=== PATIENT | female | born 2000 | race African-American/Black ===

== ENCOUNTER 2023-03-19 17:06 | Emergency (ER) | payer BC ==
--- OUTSIDE RECORDS SUMMARY | 2023-03-19 17:11 | XMS REPORT | Continuity of Care Document ---
:2000 Author Organization [facility] t Address [address] [facility], [place] [address] [place] [address] Care Team Providers Name Role Phone Kevan Duke MD Primary Care Physician Zarina Rangel Attending Clinician Unavailable Ferny Lynch Attending Clinician Unavailable Chuy Mckeon Attending Clinician Unavailable Kev Underwood Attending Clinician Unavailable Mamie Villalobos Attending Clinician Unavailable MJ MENDIOLA Attending Clinician Unavailable Chuy Mckeon Admitting Clinician Unavailable Physician, No Primary or Family Admitting Clinician Unavaila ble Payers Payer Name Policy Type Policy Number Effective Date Expiration Date S ource Problems Condition Condition Condition Status Onset Resolution Last Treating Co mments Source Name Details Category Date Date Treatment Clinician Date Encounter Encounter Diagnosis Active H ope for for Clinic Nexplanon Nexplanon removal removal Contracept Contracept Diagnosis Active Hope ion ion Clinic management management Allergies, Adverse Reactions, Alerts Allergy Allergy Status Severity Reaction(s) Onset Inactive Treating Comm ents Source Name Type Date Date Clinician Penicill DA Active U Unknown [facility] ins 01-12 00:00: 00 Penicill DA Active U HIVES [facility] [place] Pen[facility] DA Active U HIVES [facility] 8-22 [facility] [place] Penicill DA Active U ANAPHYLAXIS [facility] ins 1-25 [facility] [place] Penicill Propensi Active Rash 2020-10 Method i ins ty to 0-05 st adverse 00:00: Hospita reaction 00 l s to drug penicill Adverse Active hives [facility] in [facility] Social History Social Habit Start Date Stop Date Quantity Comments Source Gender identity [facility] Sexual orientation Method t Hospital History of Social 2021-07-29 2021-07-29 [facility] function 00:00:00 00:00:00 Sex Assigned At 2000 2000 [facility] 00:00:00 00:00:00 Smoking Status Start Date Stop Date Source Tobacco smoking consumption unknown [facility] Medications Ordered Filled Start Stop Current Ordering Indication Dosage Frequency Signature Comments Components Source Medication Medication Date Date Medication? Clinician (SIG) Name Name Microgestin Microgestin Yes Simrta 1 tablet [facility] Procedures Procedure Date / Time Performed Performing Clinician [facility] samuel [id number] 2022-06-17 00:00:00 MIDJA. [facility] [id number] 2022-06-17 00:00:00 . [facility] [id number] 2022-06-17 00:00:00 MID. [facility] Plan of Care Planned Activity Planned Date Details Comments Source Future Scheduled 2023-01-23 Screening for [facility] Test 21:20:57 malignant neoplasm of cervix (procedure) [code = 311402340] Future Scheduled 2023-01-23 COVID-19 VACCINE (3 - [facility] Test 21:20:57 Booster for Moderna series) [code = COVID-19 VACCINE (3 - Booster for Moderna series)] Future Scheduled 2023-01-23 INFLUENZA VACCINE Method [facility] Test 21:20:57 [code = INFLUENZA VACCINE] Future Scheduled 2023-01-23 Screening for [facility] Test 21:20:57 Chlamydia trachomatis (procedure) [code = 611164876] Future Scheduled 2023-01-23 Hepatitis C screening [facility] Test 21:20:57 (procedure) [code = 382033249] Future Scheduled 2022-10-17 [facility] Test 23:59:45 Chlamydia trachomatis (procedure) [code = 236379116] Future Scheduled 2022-10-17 Hepatitis C screening [facility] Test 23:59:45 (procedure) [code = 625447839] Future Scheduled 2022-10-17 [facility]ening for [facility] Test 23:59:45 malignant neoplasm of cervix (procedure) [code = 585491989] Future Scheduled 2022-10-17 COVID-19 VACCINE (3 - [facility] Test 23:59:45 Booster for Moderna series) [code = COVID-19 VACCINE (3 - Booster for Moderna series)] Future Scheduled 2022-10-17 INFLUENZA VACCINE [facility] Test 23:59:45 [code = INFLUENZA VACCINE] Encounters Start End Encounter Admission Attending Care Care Encounter Source Date/Time Date/Time Type Type Clinicians Facility Department ID 2021-11-19 Outpatient [facility] [id number] [place] 11:02:56 ye, [id number] [facility] 2023-01-12 2023-01-12 Emergency Emergency [facility], [facility] [id number] [facility] 12:42:00 14:16:00 Ferny 34 2022-06-17 2022-06-19 Inpatient EL [place], [facility] OBPP [id number] [facility] 01:39:00 14:00:00 Chuy [facility] 2022-06-15 2022-06-15 Emergency EM [place] [facility] RADHA [id number] [facility] 21:43:00 22:47:00 Chuy 92 [facility] 2022-01-27 2022-01-27 Emergency EM YOLANDE Underwood [id number] [facility] 01:38:00 05:45:00 Kev 50 [facility] 2021-11-18 2021-11-18 Emergency EM YOLANDE Villalobos [id number] [facility] 12:55:00 15:18:00 Mamie 43 [facility] 2021-07-29 2021-07-29 Emergency MARLENA, [facility] [id number] [place] 00:00:00 00:00:00 MJ Milner[address] [facility] 2019-11-17 2019-11-17 Outpatient [facility] [id number] [place] 08:30:00 08:30:00 [facility] 2018-08-16 2018-08-16 Outpatient [facility] [id number] [place] 14:45:00 14:45:00 [facility] Results Test Description Test Time Test Comments Results Result Comments Source CBC W/AUTO DIFF 2022-06-19 10:56:00 Test Item Value Reference Range Interpretation Comme nts WHITE BLOOD CELL (test code = WBC) 19.3 K/mm3 6.5-12.3 H RED BLOOD CELL (test code = RBC) 4.06 M/mm3 3.51-4.69 N HEMOGLOBIN (test code = HGB) 9.3 g/dL 10.1-13.8 L HEMATOCRIT (test code = HCT) 29.8 % 32.5-41.8 L MEAN CELL VOLUME (test code = MCV) 73.4 fL 84.6-96.6 L MEAN CELL HGB (test code = MCH) 22.9 pg 27.3-33.9 L MEAN CELL HGB CONCETRATION (test code = MCHC) 31.2 gm/dL 32.0-34. 2 L RED CELL DISTRIBUTION WIDTH (test code = RDW) 15.1 % 12.2-16. 3 N PLATELET COUNT (test code = PLT) 309 K/mm3 134-363 N MEAN PLATELET VOLUME (test code = MPV) 10.4 fL 9.2-12.7 N NEUTROPHIL % (test code = NT%) 76.3 % 57.9-77.3 N LYMPHOCYTE % (test code = LY%) 13.7 % 14.5-29.7 L MONOCYTE % (test code = MO%) 6.3 % 3.6-10.2 N EOSINOPHIL % (test code = EO%) 2.0 % 0.0-3.0 N BASOPHIL % (test code = BA%) 0.5 % 0.1-0.9 N NEUTROPHIL # (test code = NT#) 14.7 K/mm3 LYMPHOCYTE # (test code = LY#) 2.6 K/mm3 MONOCYTE # (test code = MO#) 1.2 K/mm3 EOSINOPHIL # (test code = EO#) 0.39 K/mm3 BASOPHIL # (test code = BA#) 0.1 K/mm3 RBC MORPHOLOGY REQUIRED (test code = RBCM) NORMAL NORMAL PLATELET MORPHOLOGY REQUIRED (test code = PLTMR) NORMAL DEE L [id number] 09:30:00 Test Item Value Reference Range Interpretation Comments GLUBED (test code = GLUBED) 81 mg/dL 65-110 N RUBELLA [id number] 08:50:00 Test Item Value Reference Range Interpretation Comments RUBELLA SCREEN 91.7 IUnit/ml Results >10. 0IUnits/ml (test code = are considered positive RUBSC) inaccordance wi th the CLSI guidelines and based on the WH [employer] S tandard for Anti-Rubell a serum as anindicator of immune status and a br eakpoint to detect mostseropositiv e persons. HGB [id number] 08:10:00 Test Item Value Reference Range Interpretation Comments HEMOGLOBIN (test code = HGB) 9.8 g/dL 10.1-13.8 L HEMATOCRIT (test code = HCT) 31.0 % 32.5-41.8 L LACTIC [id number] 21:11:00 Test Item Value Reference Range Interpretation Comments LACTIC ACID (test code = LACT) 1.3 MMOL/L 0.5-2.2 N LACTIC [id number] 19:21:00 Test Item Value Reference Range Interpretation Comments LACTIC ACID (test 3.0 MMOL/L 0.5-2.2 H RESULTS CA LLED TO code = LACT) TEDDY MURCIA RN.READ BACK & CONFIRME D? Y.BY [id number] 1920.Results ve rified by repeat tory sis CAPILLARY BLOOD [id number] 18:02:00 Test Item Value Reference Range Interpretation Comments CAPILLARY BLOOD GAS PH (test code 7.231 7.35-7.45 L = PHC) CAPILLARY BLOOD GAS PCO2 (test 55.4 mmHg code = PCO2C) CAPILLARY BLOOD GAS PO2 (test code 14.1 mmHg = PO2C) CBG HCO3 (test code = HCO3C) 22.7 meq/L CBG BASE EXCESS (test code = BEC) -5.5 CAPILLARY BLOOD GAS TYPE (test CBLV code = TYPEC) CAPILLARY BLOOD GAS FIO2 (test 21.0 % code = FIO2C) CAPILLARY BLOOD [id number] 18:01:00 Test Item Value Reference Range Interpretation Comments CAPILLARY BLOOD GAS PH (test code 7.155 7.35-7.45 LL = PHC) CAPILLARY BLOOD GAS PCO2 (test 71.6 mmHg code = PCO2C) CAPILLARY BLOOD GAS PO2 (test code 10.8 mmHg = PO2C) CBG HCO3 (test code = HCO3C) 24.7 meq/L CBG BASE EXCESS (test code = BEC) -5.7 CAPILLARY BLOOD GAS TYPE (test CBLA code = TYPEC) CAPILLARY BLOOD GAS FIO2 (test 21.0 % code = FIO2C) LACTIC [id number] 17:30:00 Test Item Value Reference Range Interpretation Comments LACTIC ACID (test 2.2 MMOL/L 0.5-2.2 N RESULTS CA LLED TO code = LACT) REGLA LINDSEY RN.R EAD BACK & CONFIRME D? Y.BY [id number] 1728.Results ve rified by repeat tory sis COMPREHENSIVE METABOLIC [id number] 17:17:00 Test Item Value Reference Range Interpretation Comments SODIUM (test code = NA) 137 mEq/L 135-145 N POTASSIUM (test code = K) 4.0 mEq/L 3.5-5.0 N CHLORIDE (test code = CL) 103 mEq/L 100-115 N CARBON DIOXIDE (test code = CO2) 25 mEq/L 22-31 N ANION GAP (test code = GAP) 12.60 10-20 N GLUCOSE (test code = GLU) 86 mg/dL 65-110 N BLOOD UREA NITROGEN (test code = 5 mg/dL 7-18 L BUN) GLOMERULAR FILTRATION RATE (test 100 ml/min >60 N code = GFR) CREATININE (test code = CREAT) 0.8 mg/dL 0.5-1.0 N TOTAL PROTEIN (test code = PROT) 7.2 gm/dL 6.3-8.2 N ALBUMIN (test code = ALB) 3.0 gm/dL 3.4-4.8 L CALCIUM (test code = CA) 8.8 mg/dL 8.4-10.2 N BILIRUBIN TOTAL (test code = 0.3 mg/dL 0.2-1.0 N BILT) SGOT/AST (test code = AST) 24 units/L 15-37 N SGPT/ALT (test code = ALT) 22 units/L 12-78 N ALKALINE PHOSPHATASE TOTAL (test 137 units/L 46-116 H code = ALKP) PROTHROMBIN [id number] 16:38:00 Test Item Value Reference Range Interpretation Comments PROTHROMBIN TIME PATIENT (test code 11.1 secs 10.1-12.3 N = PTP) IS PATIENT ON ANTICOAGULANTS ? NINTERNATIONAL NORMAL [id number] 16:38:00 Test Item Value Reference Range Interpretation Comments INTERNATIONAL NORMAL 0.97 The INR is to be used RATIO (test code = INR) only for monitoring oral anticoagulantth erapy. INDICATION INR VALUE 1. Prophylaxis inc luding high risk surge ry 2.0 - 2.52. Deep veno us thrombosis. Pul monary embolism. Atria l fibrillation or bioprosthetic h eart valves 2.0 - 3. 03. Mechanical hear t valves or recurrent sy stemic embolism. 3.0 - 3.5 IS PATIENT ON ANTICOAGULANTS ? NTHROMBOPLASTIN TIME [id number] 16:38:00 Test Item Value Reference Range Interpretation Comments THROMBOPLASTIN TIME PARTIAL (test 29.0 secs 22-38 N code = PTT) IS PATIENT ON ANTICOAGULANTS ? NCBC W/AUTO [id number] 16:12:00 Test Item Value Reference Range Interpretation Comments WHITE BLOOD CELL (test code = WBC) 15.8 K/mm3 6.5-12.3 H RED BLOOD CELL (test code = RBC) 4.76 M/mm3 3.51-4.69 H HEMOGLOBIN (test code = HGB) 11.0 g/dL 10.1-13.8 N HEMATOCRIT (test code = HCT) 35.3 % 32.5-41.8 N MEAN CELL VOLUME (test code = MCV) 74.2 fL 84.6-96.6 L MEAN CELL HGB (test code = MCH) 23.1 pg 27.3-33.9 L MEAN CELL HGB CONCETRATION (test 31.2 gm/dL 32.0-34.2 L code = MCHC) RED CELL DISTRIBUTION WIDTH (test 15.8 % 12.2-16.3 N code = RDW) PLATELET COUNT (test code = PLT) 338 K/mm3 134-363 N MEAN PLATELET VOLUME (test code = 10.1 fL 9.2-12.7 N MPV) NEUTROPHIL % (test code = NT%) 83.5 % 57.9-77.3 H LYMPHOCYTE % (test code = LY%) 8.5 % 14.5-29.7 L MONOCYTE % (test code = MO%) 6.8 % 3.6-10.2 N EOSINOPHIL % (test code = EO%) 0.1 % 0.0-3.0 N BASOPHIL % (test code = BA%) 0.3 % 0.1-0.9 N NEUTROPHIL # (test code = NT#) 13.2 K/mm3 LYMPHOCYTE # (test code = LY#) 1.3 K/mm3 MONOCYTE # (test code = MO#) 1.1 K/mm3 EOSINOPHIL # (test code = EO#) 0.01 K/mm3 BASOPHIL # (test code = BA#) 0.0 K/mm3 RBC MORPHOLOGY REQUIRED (test code NORMAL NORMAL = RBCM) PLATELET MORPHOLOGY REQUIRED (test NORMAL NORMAL code = PLTMR) [id number] 12:56:00 Test Item Value Reference Range Interpretation Comments GLUBED (test code = GLUBED) 129 mg/dL 65-110 H AG HEPATITIS B [id number] 05:35:00 Test Item Value Reference Range Interpretation Comments AG HEPATITIS B SURFACE (test code NONREACTIVE NONREACTIVE = HBSAG) AB HEPATITIS C [id number] 05:35:00 Test Item Value Reference Range Interpretation Comments AB HEPATITIS C (test code = NONREACTIVE NONREACTIVE HCVAB) SIGNAL TO CUTOFF (test code = 0.17 <0.80 N CUTOFF) AB [id number] 05:35:00 Test Item Value Reference Range Interpretation Comments AB TREPONEMA (test code = TREPAB) NONREACTIVE NONREACTIVE AB HIV 1 05:35:00 Test Item Value Reference Range Interpretation Comments AB HIV 1 2 (test NONREACTIVE NONREACTIVE [facility] = URH74FT) 4th Gen HIV Ag/Ab Combo Screen [id number] 05:27:00 Test Item Value Reference Range Interpretation Comments GLUCOSE (test code = GLU) 109 mg/dL 65-110 N CBC W/AUTO [id number] 04:00:00 Test Item Value Reference Range Interpretation Comments WHITE BLOOD CELL (test code = WBC) 12.7 K/mm3 6.5-12.3 H RED BLOOD CELL (test code = RBC) 4.73 M/mm3 3.51-4.69 H HEMOGLOBIN (test code = HGB) 10.8 g/dL 10.1-13.8 N HEMATOCRIT (test code = HCT) 34.5 % 32.5-41.8 N MEAN CELL VOLUME (test code = MCV) 72.9 fL 84.6-96.6 L MEAN CELL HGB (test code = MCH) 22.8 pg 27.3-33.9 L MEAN CELL HGB CONCETRATION (test 31.3 gm/dL 32.0-34.2 L code = MCHC) RED CELL DISTRIBUTION WIDTH (test 15.8 % 12.2-16.3 N code = RDW) PLATELET COUNT (test code = PLT) 356 K/mm3 134-363 N MEAN PLATELET VOLUME (test code = 9.7 fL 9.2-12.7 N MPV) NEUTROPHIL % (test code = NT%) 73.9 % 57.9-77.3 N LYMPHOCYTE % (test code = LY%) 14.5 % 14.5-29.7 N MONOCYTE % (test code = MO%) 9.2 % 3.6-10.2 N EOSINOPHIL % (test code = EO%) 1.0 % 0.0-3.0 N BASOPHIL % (test code = BA%) 0.3 % 0.1-0.9 N NEUTROPHIL # (test code = NT#) 9.4 K/mm3 LYMPHOCYTE # (test code = LY#) 1.8 K/mm3 MONOCYTE # (test code = MO#) 1.2 K/mm3 EOSINOPHIL # (test code = EO#) 0.13 K/mm3 BASOPHIL # (test code = BA#) 0.0 K/mm3 RBC MORPHOLOGY REQUIRED (test code NORMAL NORMAL = RBCM) PLATELET MORPHOLOGY REQUIRED (test NORMAL NORMAL code = PLTMR) COVID 19 Asymptomatic IH [id number] 03:04:00 Test Item Value Reference Range Interpretation Comments COVID 19 NEGATIVE NEGATIVE This test has b een Asymptomatic IH AG authorize d only for the (test code = detection ofpro teins from COVNONPUIAG) SARS-CoV-2, not for any other viruses orpathogens. Ne gative results should be treated as presumptive andconfirmed wi th a molecular assay , if necessary for patientmanageme nt. Negative result s do not rule out COVID- 19 andshould not b e used as the sole basis for treatment orpat ient management deci sions, including infec tion controldecision s. Negative result s should be considered i n thecontext of a patient's recent exposure s, history and thepresence of clinical signs and symptoms consis tent withCOVID-19. T his test has not been FD A cleared or approved; th e test hasbeen authori jacob by FDA under an Emerge ncy Use Authorization(E UA) for use by laborato mehrdad certified under the CLIA thatmeet the re quirements to perform mode rate, high or waivedcomple xity tests. This toma t is authorized for use at thePoint of Car e (POC), i.e., in patien t care settingsoperati ng under a CLIA Certificat e of Waiver, Certifi rj ofCompliance, o r Certificate of Accreditation. This test is only authori zesalma for the duration of thedeclaration that circumstances e xist justifying theauthorizatio n of emergency use o f in vitro diagnostic test sfor detection and/o r diagnosis of CO VID-19 under Cjsuesx82 4(b)(1) of the Act, 21 U.S .C. 360bbb-3(b)(1), unless theauthorizatio n is terminated or r evoked sooner. URINALYSIS [id number] 03:12:00 Test Item Value Reference Range Interpretation Comments UA COLOR (test code = YELLOW YELLOW COLU) UA APPEARANCE (test code CLEAR CLEAR = APPU) UA GLUCOSE DIPSTICK (test NORMAL MG/DL NORMAL code = DGLUU) UA BILIRUBIN DIPSTICK NEGATIVE MG/DL NEGATIVE (test code = BILU) UA KETONE DIPSTICK (test NEGATIVE MG/DL NEGATIVE code = KETU) UA SPECIFIC GRAVITY (test 1.025 1.003-1.030 N code = SGU) UA BLOOD DIPSTICK (test 25 Mir/mm3 NEGATIVE A code = STU) UA PH DIPSTICK (test code 6.0 5.0-9.0 N = VIANNEY) UA PROTEIN DIPSTICK (test 30 MG/DL NEGATIVE A code = PROU) UA UROBILINIOGEN DIPSTICK NORMAL MG/DL NORMAL (test code = URO) UA NITRITE DIPSTICK (test NEGATIVE NEGATIVE code = MASOOD) UA LEUKOCYTE ESTERASE NEGATIVE /mm3 NEGATIVE DIPSTICK (test code = LEUU) UA CULTURE NEEDED? (test NO, WBC<10 Criteria Culture Chk code = UACULT) SOURCE OF URINE: CLEAN CATCHUA [id number] 03:12:00 Test Item Value Reference Range Interpretation Comments UA RBC (test code = 0-3 RBC/HPF 0-3 RBCU) UA WBC (test code = 0-3 WBC/HPF 0-5 XWBCU) UA EPITHELIAL CELLS FEW EPI/HPF FEW (test code = EPIU) UA BACTERIA (test RARE NONE code = XBACU) UA HYALINE CAST (test 0-5 See_Comment A [Auto mated message] code = HYALU) The system [employer] generated this result transmitted ref erence range: 0-2/HPF. The reference range was not used to int erpret this result as normal/abnormal . SOURCE OF URINE: CLEAN CATCHDRUGS OF ABUSE SCREEN [id number] 03:12:00 Test Item Value Reference Range Interpretation Comments UR COCAINE (test code = NEGATIVE NEGATIVE Cut off Value: 300 COCAU) ng/mL UR CANNABINOIDS (THC) POSITIVE NEGATIVE A Cut of f Value: 50 (test code = CANU) ng/mL UR AMPHETAMINE (test code NEGATIVE NEGATIVE Cu t off Value: 1000 = AMPHU) ng/mL UR BARBITURATE QUAL (test NEGATIVE NEGATIVE Cu t off Value: 200 code = BARBQLU) ng/mL UR BENZODIAZEPINE (test NEGATIVE NEGATIVE Cut off Value: 200 code = BENZU) ng/mL UR OPIATES QUAL (test code NEGATIVE NEGATIVE C ut off Value: 300 = OPIAQLU) ng/mL UR PHENCYCLIDINE (PCP) NEGATIVE NEGATIVE Cut o ff Value: 25 (test code = PHENCU) ng/mL SOURCE OF URINE: CLEAN CATCHBASIC METABOLIC [id number] 02:44:00 Test Item Value Reference Range Interpretation Comments SODIUM (test code = 138 MMOL/L 137-145 N NA) POTASSIUM (test code = 3.5 MMOL/L 3.5-5.1 N K) CHLORIDE (test code = 102 MMOL/L 98-107 N CL) CARBON DIOXIDE (test 25 MMOL/L 22-30 N code = CO2) GLUCOSE (test code = 142 MG/DL 74-106 H GLU) BLOOD UREA NITROGEN 17 MG/DL 7-17 N (test code = BUN) GLOMERULAR FILTRATION > 60 Report ing units: RATE (test code = GFR) ml/mi n/1.73 m2 (Modified MDRD Formula)Referen ce Range: > or = 6 0 ml/min/1.73 m2 CREATININE (test code 1.20 MG/DL 0.52-1.04 H = CREAT) CALCIUM (test code = 8.9 MG/DL 8.4-10.2 N CA) HEPATIC FUNCTION [id number] 02:44:00 Test Item Value Reference Range Interpretation Comments TOTAL PROTEIN 8.0 G/DL 6.3-8.2 N [facility] Clinical Diagnostic (test code = has made us shari re of PROT) newinformation regarding the potential i nterference ofEltrombopag ( a bone marrow stimulan t used to treatthrombocyt onmenia and aplastic anemia ) with specific assays on the DSI MET-TECHs 5600 of which Total Protein is one of thoseassays per formed in our lab.Interfe rence testing perform ed at Ortho determined that Eltrombopag does interfere with Vitros Total Protein asfollowsEltrom bopag Interference fo r Vitros Product Total Protein:======= Eltrombopag Max Observed Av g. BiasConcentrati on Concentration Concentration== ==== 2.5 mg/dl 6.0 g/dl +0.41 +0.34 3.5 mg/dl 6.0 g /dl +0.50 +0.45 5 mg/dl 6.0 g/dl +0.73 +0.65 2.5 mg/dl 8.0 g/dl +0.44 +0.4 1 3.5 mg/dl 8.0 g/dl +0.55 +0.52 5 mg/dl 8.0 g/dl +0.86 +0.77 ALBUMIN (test 4.5 G/DL 3.5-5.0 N code = ALB) BILIRUBIN TOTAL 0.4 MG/DL 0.2-1.3 N Eltrombopag Interference (test code = for Vitros Prod uct TBil, BILT) BuBc: Assa y Eltrombopag Sangeetha lyte/ Max Observed Avg. B ias Concentration C oncentration Concentration== ====TBil 7mg/dl TBil/ 1. 2mg/dl +0.23mg.dl +0.2 0mg/dlBuBc 3.5mg/dl Bu/0.8 mg/dl +0.25mg/dl +0.2 4mg/dlBuBc 7 mg/dl Bu/14.2mg /dl +0.38mg/dl +0.2 5mg/dlBuBc 5mg/dl Bc/0mg/d l +0.25mg/dl +0.15mg/dlBuBc 3.5mg/dl Bc/2.8mg/dl +0. 25mg/dl +0.23mg/dl BILIRUBIN DIRECT 0.0 MG/DL 0.0-0.3 N Eltrombopag Interference (test code = for Vitros Prod uct TBil, BILD) BuBc: Assa y Eltrombopag Sangeetha lyte/ Max Observed Avg. B ias Concentration C oncentration Concentration== ====TBil 7mg/dl TBil/ 1. 2mg/dl +0.23mg.dl +0.2 0mg/dlBuBc 3.5mg/dl Bu/0.8 mg/dl +0.25mg/dl +0.2 4mg/dlBuBc 7 mg/dl Bu/14.2mg /dl +0.38mg/dl +0.2 5mg/dlBuBc 5mg/dl Bc/0mg/d l +0.25mg/dl +0.15mg/dlBuBc 3.5mg/dl Bc/2.8mg/dl +0. 25mg/dl +0.23mg/dl SGOT/AST (test 39 UNITS/L 14-36 H code = AST) SGPT/ALT (test 32 UNITS/L 0-34 N code = ALT) ALKALINE 57 UNITS/L 38-126 N PHOSPHATASE (test code = ALKP) [id number] 02:44:00 Test Item Value Reference Range Interpretation Comments ACETAMINOPHEN (test code = < 10.0 MCG/ML 10-30 L ACET) [id number] 02:44:00 Test Item Value Reference Range Interpretation Comments SALICYLATE (test code = SHARITA) < 1.0 MG/DL <2.0 [id number] 02:44:00 Test Item Value Reference Range Interpretation Comments ALCOHOL (test code = ALC) < 10.0 MG/DL <10 HCG SERUM [id number] 02:42:00 Test Item Value Reference Range Interpretation Comments HCG SERUM QUAL (test code = HCGQL) NEGATIVE NEGATIVE CBC W/AUTO [id number] 02:15:00 Test Item Value Reference Range Interpretation Comments WHITE BLOOD CELL (test code = 9.3 K/MM3 3.8-9.8 N WBC) RED BLOOD CELL (test code = 5.03 M/MM3 3.58-4.97 H RBC) HEMOGLOBIN (test code = HGB) 11.4 G/DL 11.2-14.9 N HEMATOCRIT (test code = HCT) 36.7 % 33.2-43.5 N MEAN CELL VOLUME (test code = 73 fL 80.7-99.1 L MCV) MEAN CELL HGB (test code = MCH) 22.7 pg 27.0-34.1 L MEAN CELL HGB CONCETRATION 31.1 % 32.2-35.7 L (test code = MCHC) RED CELL DISTRIBUTION WIDTH 15.6 % 12.1-15.2 H (test code = RDW) PLATELET COUNT (test code = 346 K/MM3 129-368 N PLT) MEAN PLATELET VOLUME (test code 9.7 fl 7.4-10.4 N = MPV) NEUTROPHIL % (test code = NT%) 51.8 % 43-75 N IMMATURE GRANULOCYTE % (test 0.2 % 0.0-2.0 N code = IG%) LYMPHOCYTE % (test code = LY%) 39.2 % 14-44 N MONOCYTE % (test code = MO%) 7.6 % 4-13 N EOSINOPHIL % (test code = EO%) 0.8 % 0-6 N BASOPHIL % (test code = BA%) 0.4 % 0-2 N NUCLEATED RBC % (test code = 0.0 % 0-1.0 N NRBC%) NEUTROPHIL # (test code = NT#) 4.79 K/mm3 2.0-7.6 N IMMATURE GRANULOCYTE # (test 0.02 x10 3/uL 0-0.03 N code = IG#) LYMPHOCYTE # (test code = LY#) 3.63 K/mm3 1.0-3.8 N MONOCYTE # (test code = MO#) 0.70 K/mm3 0.1-0.8 N EOSINOPHIL # (test code = EO#) 0.07 K/mm3 0.0-0.2 N BASOPHIL # (test code = BA#) 0.04 K/mm3 0.0-0.2 N NUCLEATED RBC # (test code = 0.00 K/mm3 0.0-0.1 N NRBC#) - DUP AB/PEL/SC [id number] 14:33:00 [facility] : 2000 Sex: F Patient Name: TAWNY MARTIN Unit No: [id number] EXAMS: CPT CODE: [id number] DUP AB/PEL/SC LTD 27763 ULTRASOUND:- DUP AB/PEL/SC LTD, - US PREG UT TRANSVAGINAL, - US PREG 1ST TRIMTR History: at 7 weeks with lower abdominal pain Comparison: None. B-mode/Stearns scale imaging with color Doppler perfusion imaging and spectral analysis was performed. The uterus measures 8.1 x 5.7 x 6.5 cm. A single gestation is seen within or single rounded gestational sac. Amniotic fluid appears to be normal. The expected date of delivery is July 08, 2022, +/- 4 days making this a 6 week and 6 day gestation. Menstrual age one week more advanced at 7 weeks and 6 days. Heart rate rate at 133 BPM. A subchronic hemorrhage suggested at 1.6 x 2.4 x 0.6 cm adjacent to the left aspect of the gestational sac and may need further follow-up. The right ovary is 2.5 x 1.4 x 2.6 cm with normal arterial Doppler flow pattern. The left ovary at 3.7 x 2.5 x 2.4 cm contains a 2.7 x 1.8 x 2 cm complex likely hemorrhagic cyst, almost isodense echogenic with the ovarian tissue. Impression: 6 week and 6 day single viable gestation. Small to moderate subchorionic hemorrhage seen with follow-up recommended in the next 1-2 weeks. Location: 19 at 1433 Reported and signed by: WON CARRERO MD CC: Mamie Villalobos DO Technologist: Stephanie Goodman RDMS(AB); SN [id number] Transcrpt Date/Tm/Trnsp: 11/18/2021 (1663) [id number] Orig Print D/T: S: 11/18/2021 (4956) [facility] NAME: TAWNY MARTIN [id number] PHYS: [place] [address] : 2000 AGE: 21 SEX: F LOC: Z.ERS PHONE #: [phone] EXAM DATE: 11/18/2021 STATUS: REG ER FAX #: [phone] RADIOLOGY NO: PAGE 1 Signed Report- US PREG UT [id number] 14:33:00 [facility] 2000 Sex: F Patient Name: TAWNY MARTIN Unit No: [id number] EXAMS: CPT CODE: [id number] US PREG UT TRANSVAGINAL 78785 ULTRASOUND: - DUP AB/PEL/SC LTD, - US PREG UT TRANSVAGINAL, - US PREG 1ST TRIMTR History: at 7 weeks with lower abdominal pain Comparison: None. B-mode/Stearns scale imaging with color Doppler perfusion imaging and spectral analysis was performed. The uterus measures 8.1 x 5.7 x 6.5 cm. A single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 the data set between the solid lines has been im ported from nursing documentation. any exceptions have been noted be low under provider comments. __ rom date: 06/17/22 rom time: 0000 __ provider comments on imported nursing data: [] general vs: last documented: result date time b/p mean 83.0 06/17 1455 b/p 115/59 06/17 1455 pulse 103 06/17 1455 temp 98.4 06/17 1233 resp 16 06/17 0121 vital signs date temp pulse resp b/p b/p mean pulse ox fio2 06/17 98.2-98.4 78-106 16 114-136/57-77 82.0-10 1.0 patient weight: weight (lb): 183 weight (oz): 6.79 weight (kg): 83.200 objective cervical/ exam: dilatation (cm): 8 effacement (%): 100 station: 0 presentation: cephalic uterine activity: monitor: toco frequency (description): regular (every 2-5 min utes) duration (seconds): 60 resting tone: relaxed tachysystole: no current oxytocin: indication: augmentation, not yet started, but ordered previously procedures: vaginal exam fhr evaluation baby a: baby a baseline: 160 bpm baby a variability: moderate 6-25 bpm baby a accelerations: 10 x 10 baby a decelerations: variable result findings/data: laboratory tests: 06/17 06/17 06/17 1250 0345 0125 chemistry glucose (65 - 110 mg/dl) 109 poc glucose (65 - 110 mg/dl) 129 h hematology wbc (6.5 - 12.3 k/mm3) 12.7 h rbc (3.51 - 4.69 m/mm3) 4.73 h hgb (10.1 - 13.8 g/dl) 10.8 hct (32.5 - 41.8 %) 34.5 mcv (84.6 - 96.6 fl) 72.9 l mch (27.3 - 33.9 pg) 22.8 l mchc (32.0 - 34.2 gm/dl) 31.3 l rdw (12.2 - 16.3 %) 15.8 plt count (134 - 363 k/mm3) 356 mpv (9.2 - 12.7 fl) 9.7 neut % (auto) (57.9 - 77.3 %) 73.9 lymph % (auto) (14.5 - 29.7 %) 14.5 mono % (auto) (3.6 - 10.2 %) 9.2 eos % (auto) (0.0 - 3.0 %) 1.0 baso % (auto) (0.1 - 0.9 %) 0.3 neut # (auto) (k/mm3) 9.4 lymph # (auto) (k/mm3) 1.8 mono # (auto) (k/mm3) 1.2 eos # (auto) (k/mm3) 0.13 baso # (auto) (k/mm3) 0.0 serology treponema pallidum ab (nonreactive) nonreactive hep bs antigen (nonreactive) nonreactive hepatitis c antibody (nonreactive) nonreactive hep c ab signal/cutoff (<0.80) 0.17 hiv 1 2 antibody (nonreactive) nonreactive sars-cov-2 ag (rapid) (negative) negative microbiology: date/time procedure - status source growth 06/17 1546 blood culture - ord blood 06/17 1546 blood culture gram stain - ord blood 06/17 1546 blood culture - ord blood 06/17 1546 blood culture gram stain - ord blood diagnosis, assessment plan problem list/a p: 1. pregestational diabetes mellitus, modified w gricel class b 2. htn in , chronic free text a p: 22 y/o g1 @ 37 3/7 weeks, hi story of pgdm, also with suspected chtn, srom since 00:00 on 06/17/2022, remianed in [facility] for several hours awaiting l d bed, now with code sepsis called: -culture, iv fluids, labs -iv gent and clinda, pcn allergic -now c/0 -pitocin if able -moving towards vaginal delivery -anfs overall reassuring electronically signed by chuy mckeon md on 06/17/22 at 1711 rpt #:[id number] end of report 2022-06-17 02:08:00-00:00 [facility] ([facility]) ob admission / h p report#:[id number] report status: signed date:06/17/22 time: 0208 patient: tawny martin unit #: [id number] room/bed: supriyao-e : 00 age: 22 sex: f attend: argenis mckeon md adm dt: 06/17/22 author: antonio silva md * all edits or amendments must be made on the [employer]/computer document * ob history chief complaint: leakage of fluid hpi: 22 yo at 37w3d by stated dates presenting w ith leakage of clear fluid at midnight. she is feeling alex e period-like cramping. she reports recently being 4 cm in the office. she received her care with dr. lucy alston. records are not currently available. she reports a growth ultrasound about 2 we eks ago, 6.14 lb. history: : 1 term: 0 : 0 abortus: 0 living children: 0 current : admission ega (weeks) 37 admission ega (days) 3 edc based on: stated dates conditions of : diabetes - gestational (metformin 1,000 mg bid), gbs status (unknown) labs: gbs: pending per patient past history additional medical history: denies. additional surgical history: denies. additional family history denies. alcohol use denies etoh use drug use denies recreational drugs smoking status: smoking status for patients 13 years old or old er: never smoker medications: home medications: pnv/fe fum/fa ( multivitamin) 1 tab po d aily metformin 1,000 mg bid allergies: coded allergies: penicillins (hives 06/15/22) review of systems all systems rev neg: except as marked objective general vs: last documented: result date time b/p mean 94.0 06/17 0121 b/p 133/71 06/17 0121 temp 98.2 06/17 0121 pulse 90 06/17 0121 resp 16 06/17 0121 vital signs date temp pulse resp b/p b/p mean pulse ox fio2 06/17 98.2 90 16 133/71 94.0 patient weight: weight (lb): weight (oz): weight (kg): 83.289081 physical exam heent: normocephalic w/o injury lungs: unlabored breathing neuro: exam: alert, oriented x3, normal speech abdomen: gravid, soft, no abnormal tenderness, n o guarding, no rebound tenderness uterine activity: monitor: toco frequency (description): regular (every 2-5 min utes) duration (seconds): 60 resting tone: relaxed tachysystole: no pelvic exam: pelvis clinically adequate: yes cervical/ exam: dilatation (cm): 4 effacement (%): 70 est wt (gms): 3700 suspected macrosomia: no suspected > 5000 grams: no station: - 2 presentation: cephalic membranes: membranes: prom rom date: 06/17/22 rom time: 0000 amniotic fluid: clear lower extremities: edema: none baby a: baby a baseline: 135 bpm baby a variability: moderate 6-25 bpm baby a accelerations: 15 x 15 baby a decelerations: none baby a fhr category: category 1 diagnosis, assessment plan diagnosis, assessment plan free text a p: 22 yo at 37w3d presenti ng with prom. no cervical change since office exam. vitals wnl. fht cat i. maternal and status reassuring. gbs uknown. prom -admit to l d -admission labs -pitocin, titrate per protocol -continuous efm, toco -iv stadol 2 mg q 3 hours prn pain -epidural prn gdma2 -fs q 4 hours gbs unknown -patient reports collected this past wednesday in t he office -no indication to start antibiotics at this time -if prolonged rom, recommend starting antibiotic s; patient has penicillin allergy of hives so would start vancomycin at th at time electronically signed by antonio silva md on at 0254 rpt #:[id number] end of report 2022-01-27 02:02:00-00:00 [facility] ([facility]) EMERGENCY PROVIDER REPORT REPORT#:[id number] REPORT STATUS: Signed DATE:01/27/22 TIME: 0202 PATIENT: ALFONSO MARTIN UNIT #: [id number] ROOM/BED: AGE: 21 SEX: F PCP PHYS: No Primary or Family P hysician SERVICE AUTHOR: Kev Underwood LOCATION: [facility] * ALL edits or amendments must be made on the [employer]/computer document * HPI-General Illness Free Text HPI Notes Free Text HPI Notes 21-year-old female who denie s any significant past medical history who presents after edible ingestion with alcohol. Candice carr states that she is never taken an edible before and decided tonight to take an mickie ble with few sips of alcohol. She endorses some palpitations and feeling off. Patient denies any changes in vision, chest pain, shortness of breath, abdomin al pain, nausea, vomiting. General Initial Greet Date/Time 01/27/22 0152 Presentation Chief Complaint Took an edible. Review of Systems Review of Systems Constitutional Denies: Chills, Fatigue, Weakness - generalized. Eyes Denies: Blurred bilat. Ears/Nose/Throat Denies: Nose bleeding, Sinus problem. Respiratory Denies: Cough, non-productive, Cough, productive , Shortness of breath. Cardiovascular Denies: Chest pain, Dyspnea on exertion. GI Denies: Abdominal pain, Nausea, Vomiting. Female Denies: Dysuria. Musculoskeletal Denies: Back pain. Past Medical History - Adult Stated Complaint PT ATE AN EDIBLE OF THC Allergies Coded Allergies: Penicillins (ANAPHYLAXIS 11/18/21) Home Medications Reported Medications No Known Home Medications Additional Medical History Denies past medical history Additional Surgical History Denies past surgeries Alcohol Use Denies EtOH use Drug Use Denies recreational drugs Smoking status: Smoking status for patients 13 years old or old er: Never Smoker Physical Exam Vital Signs Vital Signs First Documented: Result Date Time Pulse Ox 100 / 0141 B/P 154/79 / 0141 B/P Mean 104 / 0141 O2 Delivery Room air 01/27 014 Pulse 163 04/ 0141 Resp 20 01/27 014 Last Documented: Result Date Time Pulse Ox 100 /02 2649 B/P 120/66 / 0549 B/P Mean 84 / 0549 O2 Delivery Room air 01/27 0549 Pulse 86 / 0549 Resp 16 01/27 0549 Review of Vital Signs Reviewed Physical Exam General/Const General/Const Awake, Alert, No acute di stress, Well appearing, Well developed , Well hydrated, Well nourished, Cooperative, No t toxic appearing MS Head Head Atraumatic, Normocephalic Eyes Eyes Atraumatic, EOMI Ears/Nose/Throat Ears/Nose/Throat Atraumatic, Airway patent MS Neck Neck Atraumatic Resp/Chest Respiratory/Chest Atraumatic, No respiratory di stress Cardiovascular Heart Rate/Rhythm Tachycardia. Abdomen/GI Abdomen/GI Atraumatic, Soft Skin Skin Atraumatic, Warm, Dry Neurologic Neurologic Oriented X3, Speech NL Psychiatric Psychiatric Affect NL, Mood NL Interpretation Diagnostics Lab Results Interpretation Results Laboratory Tests 01/27/22 0207: [Embedded Image Not Available] Laboratory Tests: 01/27 01/27 01/27 0233 0207 0207 Chemistry Sodium (137 - 145 MMOL/L) 138 Potassium (3.5 - 5.1 MMOL/L) 3.5 Chloride (98 - 107 MMOL/L) 102 Carbon Dioxide (22 - 30 MMOL/L) 25 BUN (7 - 17 MG/DL) 17 Creatinine (0.52 - 1.04 MG/DL) 1.20 H Glomerular Filtr Rate > 60 Glucose (74 - 106 MG/DL) 142 H Calcium (8.4 - 10.2 MG/DL) 8.9 Total Bilirubin (0.2 - 1.3 MG/DL) 0.4 Direct Bilirubin (0.0 - 0.3 MG/DL) 0.0 AST (14 - 36 UNITS/L) 39 H ALT (0 - 34 UNITS/L) 32 Total Alk Phosphatase (38 - 126 UNITS/L) 57 Total Protein (6.3 - 8.2 G/DL) 8.0 Albumin (3.5 - 5.0 G/DL) 4.5 Serum , Qual (NEGATIVE) NEGATIVE Hematology WBC (3.8 - 9.8 K/MM3) 9.3 RBC (3.58 - 4.97 M/MM3) 5.03 H Hgb (11.2 - 14.9 G/DL) 11.4 Hct (33.2 - 43.5 %) 36.7 MCV (80.7 - 99.1 fL) 73 L MCH (27.0 - 34.1 pg) 22.7 L MCHC (32.2 - 35.7 %) 31.1 L RDW (12.1 - 15.2 %) 15.6 H Plt Count (129 - 368 K/MM3) 346 MPV (7.4 - 10.4 fl) 9.7 Neut % (Auto) (43 - 75 %) 51.8 Lymph % (Auto) (14 - 44 %) 39.2 [place] % (Auto) (4 - 13 %) 7.6 Eos % (Auto) (0 - 6 %) 0.8 Baso % (Auto) (0 - 2 %) 0.4 Neut # (Auto) (2.0 - 7.6 K/mm3) 4.79 Lymph # (Auto) (1.0 - 3.8 K/mm3) 3.63 [place] # (Auto) (0.1 - 0.8 K/mm3) 0.70 Eos # (Auto) (0.0 - 0.2 K/mm3) 0.07 Baso # (Auto) (0.0 - 0.2 K/mm3) 0.04 Immature Gran % (0.0 - 2.0 %) 0.2 Nucleated RBC % (0 - 1.0 %) 0.0 Nucleated RBCs # (Man) (0.0 - 0.1 K/mm3) 0.00 Toxicology Salicylates (<2.0 MG/DL) < 1.0 Urine Opiates Screen (NEGATIVE) NEGATIVE Acetaminophen (10 - 30 MCG/ML) < 10.0 L Ur Barbiturates, Qual (NEGATIVE) NEGATIVE Ur Phencyclidine Scrn (NEGATIVE) NEGATIVE Ur Amphetamines Screen (NEGATIVE) NEGATIVE U Benzodiazepines Scrn (NEGATIVE) NEGATIVE Urine Cocaine Screen (NEGATIVE) NEGATIVE Urine Cannabinoids (NEGATIVE) POSITIVE H Ethyl Alcohol (<10 MG/DL) < 10.0 Urines Urine Color (YELLOW) YELLOW Urine Appearance (CLEAR) CLEAR Urine pH (5.0 - 9.0) 6.0 Ur Specific Anthony (1.003 - 1.030) 1.025 Urine Protein (NEGATIVE MG/DL) 30 H Urine Glucose (UA) (NORMAL MG/DL) NORMAL Urine Ketones (NEGATIVE MG/DL) NEGATIVE Urine Blood (NEGATIVE Mir/mm3) 25 H Urine Nitrite (NEGATIVE) NEGATIVE Urine Bilirubin (NEGATIVE MG/DL) NEGATIVE Urine Urobilinogen (NORMAL MG/DL) NORMAL Ur Leukocyte Esterase (NEGATIVE /mm3) NEGATIVE Urine RBC (0 - 3 RBC/HPF) 0-3 Urine WBC (0 - 5 WBC/HPF) 0-3 Ur Epithelial Cells (FEW EPI/HPF) FEW Urine Bacteria (NONE) RARE Hyaline Casts (0 - 2/HPF) 0-5 H Urine Culture Screen (Culture Chk Criteria) NO, WBC<10 Re-Evaluation MDM Free Text MDM Notes Free Text MDM Notes 21-year-old female presents after edible ingesti on and alcohol. We will give her IV fluids and take basic blood work and observe her for the next few hours. Re-Evaluation/Progress #1 Text/Dict Note UDS is positive for THC. No other main drugs are in her system. Patient's electrolytes and kidney function are normal. Neg ative . Normal white count and blood levels. No a cetaminophen, salicylates or alcohol in her system. Time of Re-Eval 0324 Re-Evaluation/Progress #2 Text/Dict Note Patient is feeling back to her baseline. Stable for discharge. ED Course Medication(s) Ordered Medication(s) Ordered: Electrolytic, Caloric, And Claudio Sig/[facility] Start time Last Medication Dose Route Stop Time Status Admin Sodium Chloride 2,000 ML X1ED STA 01/27 0152 DC 01/27 IV 01/27 0352 0233 Patient Discharge Departure Vital Signs/Condition Vital Signs First Documented: Result Date Time Pulse Ox 100 04/ 0141 B/P 154/79 04/ 0141 B/P Mean 104 04/05 0141 O2 Delivery Room air 04/05 0141 Pulse 163 04/05 0141 Resp 20 04/05 0141 Last Documented: Result Date Time Pulse Ox 100 04/05 0549 B/P 120/66 04/05 0549 B/P Mean 84 04/05 0549 O2 Delivery Room air 04/05 0549 Pulse 86 04/05 0549 Resp 16 04/05 0549 All vital signs available at the time of this en try have been reviewed. Clinical Impression Clinical Impression Primary Impression: Marijuana use Disposition Decision Discharge )( Discharged to Home Yes )( Time 0540 )( Date 01/27/22 Discharge/Care Plan (Auto) Prescriptions Current Visit Scripts No Known Home Medications Patient Instructions ED Marijuana Abuse at 0628 RPT #:[id number] END OF REPORT 2021-11-18 14:57:00-00:00 [facility] ([facility]) EMERGENCY PROVIDER REPORT REPORT#:[id number] REPORT STATUS: Signed DATE:11/18/21 TIME: 1457 PATIENT: TAWNY MARTIN UNIT #: [id number] ROOM/BED: AGE: 21 SEX: F PCP PHYS: No Primary or Family Ph ysician SERVICE AUTHOR: ShantellAbdi DO R1 LOCATION: [facility] * ALL edits or amendments must be made on the [employer]/computer document * Abdi Stinson 11/18/21 1457: HPI-Preg Under 20 Weeks Free Text HPI Notes Free Text HPI Notes Pt is a 21 y/o female no pmh who presents to the ED for lower abdominal cramps. Pt states that she tested positive at home using a test in the beginning of October. Since then, she reports jorgensen ving intermittent lower abdominal cramps. She has no t established a PCP or OBGYN yet. She has not taken any medications. She denies any headache, fever, chills, chest pain, sob, urinary sx, vaginal dc. General Initial Greet Date/Time 11/18/21 1311 Presentation Chief Complaint Pelvic pain Risk-Preg Under 20 Weeks Risk Stratification Ectopic Risk factors reviewed Review of Systems ROS Statements All systems rev neg except as marked. Focused Review of Systems Constitutional Denies: Chills, Fatigue, Fever. Eyes Denies: Blurred bilat, Discharge bilat, Photopho bryn. Respiratory Denies: Cough, non-productive, Hemoptysis, Short ness of breath. Cardiovascular Denies: Chest pain, Dyspnea on exertion, Edema. GI Denies: Abdominal pain, Nausea, Vomiting. Female Reports: Pelvic pain. Denies: Dysuria, Flank balwinder n, Hematuria. Musculoskeletal Denies: Back pain, Extremity pain, Extremity swe lling. Past Medical History - Adult Stated Complaint 7WKS PREG AND LOWER ABD CRAMPIN G X3 WKS Allergies Coded Allergies: Penicillins (ANAPHYLAXIS 11/18/21) Home Medications Reported Medications No Known Home Medications Calculated Suicide Risk (nurs) No risk Smoking status: Smoking status for patients 13 years old or old er: Unknown,if ever smoked Physical Exam Vital Signs Vital Signs First Documented: Result Date Time Pulse Ox 99 11/18 1301 B/P 121/73 11/18 1301 B/P Mean 89 11/18 1301 O2 Delivery Room air 11/18 1301 Temp 36.9 11/18 1301 Pulse 78 11/18 1301 Resp 18 11/18 1301 Last Documented: Result Date Time Pulse Ox 99 11/18 1301 B/P 121/73 11/18 1301 B/P Mean 89 11/18 1301 O2 Delivery Room air 11/18 1301 Temp 36.9 11/18 1301 Pulse 78 11/18 1301 Resp 18 11/18 1301 Review of Vital Signs Reviewed Focused PE General/Const General/Const Awake, Alert, No acute distress Ears/Nose/Throat Ears/Nose/Throat Atraumatic, Airway patent, Muc ous membranes moist Resp/Chest Respiratory/Chest Atraumatic, Breath sounds NL, Breath sounds = bilat Cardiovascular Cardiovascular Heart rate NL, Regular rhythm Abdomen/GI Abdomen/GI Atraumatic, Soft, Non-tender, No gua rding, No rebound, No distention MS Back Back Atraumatic, Inspection NL, Non-tender Genitourinary General Exam deferred Interpretation Diagnostics Lab Results Interpretation Results Laboratory Tests: 11/18 11/18 1311 1311 Urines Urine Color (YELLOW) YELLOW Urine Appearance (CLEAR) CLEAR Urine pH (5.0 - 9.0) 7.0 Ur Specific Anthony (1.003 - 1.030) 1.010 Urine Protein (NEGATIVE MG/DL) NEGATIVE Urine Glucose (UA) (NORMAL MG/DL) 50 H Urine Ketones (NEGATIVE MG/DL) NEGATIVE Urine Blood (NEGATIVE Mir/mm3) NEGATIVE Urine Nitrite (NEGATIVE) NEGATIVE Urine Bilirubin (NEGATIVE MG/DL) NEGATIVE Urine Urobilinogen (NORMAL MG/DL) NORMAL Ur Leukocyte Esterase (NEGATIVE /mm3) NEGATIVE Urine Culture Screen (Culture Chk Criteria) NEG ATIVE, NO CULTURE Urine HCG, Qual (NEGATIVE) POSITIVE Recent Impressions: ULTRASOUND - DUP AB/PEL/SC LTD 11/187 Report Impression - Status: SIGNED Entered: 11/18/2021 1436 Impression: 6 week and 6 day single viable gesta tion. Small to moderate subchorionic hemorrhage seen with follo w-up recommended in the next 1-2 weeks. Location: [facility] Impression By: [email or web address] - WON CARRERO MD ULTRASOUND - US PREG UT TRANSVAGINAL 11/18 1345 Report Impression - Status: SIGNED Entered: 11/18/2021 1436 Impression: 6 week and 6 day single viable gesta tion. Small to moderate subchorionic hemorrhage seen with follo w-up recommended in the next 1-2 weeks. Location: [facility] Impression By: Annalee CARRERO MD ULTRASOUND - US PREG 1ST TRIMTR 11/18 1345 Report Impression - Status: SIGNED Entered: 11/18/2021 1436 Impression: 6 week and 6 day single viable gesta tion. Small to moderate subchorionic hemorrhage seen with follo w-up recommended in the next 1-2 weeks. Location: [facility] Impression By: Annalee CARRERO MD Re-Evaluation MDM Free Text MDM Notes Free Text MDM Notes Pt presents with lower abdom inal cramps after testing positive for in the beginning of october. TV US demonstrates 6wk 6day gestation and subchorionic hemorrhage. Pt in no distres s and physical exam was negative. Pt advised to f/u with PCP and OBGYN to establish care. Pt underst ood course of hospital stay. Vitals stable for dc. No questions or concerns f rom pt. Patient Discharge Departure Vital Signs/Condition Vital Signs First Documented: Result Date Time Pulse Ox 99 11/18 1301 B/P 121/73 11/18 1301 B/P Mean 89 11/18 1301 O2 Delivery Room air 11/18 1301 Temp 36.9 11/18 1301 Pulse 78 11/18 1301 Resp 18 11/18 1301 Last Documented: Result Date Time Pulse Ox 99 11/18 1301 B/P 121/73 11/18 1301 B/P Mean 89 11/18 1301 O2 Delivery Room air 11/18 1301 Temp 36.9 11/18 1301 Pulse 78 11/18 1301 Resp 18 11/18 1301 All vital signs available at the time of this en try have been reviewed. Condition Stable Disposition Decision Discharge )( Discharged to Home Yes )( Time 1511 )( Date 11/18/21 Discharge/Care Plan Counseled Regarding Diagnosis, Lab results, Imag ing studies (Auto) Prescriptions Current Visit Scripts No Known Home Medications Patient Instructions ED , New Dx Referrals [facility] - ACCOUNTING GENERALIST's Only Discharge Note I have spoken with the patie nt and/or caregivers. I have explained the patient's condition, diagnoses and merna atment plan based on the information available to me at this time. I have answered the patient's and/ or caregiver's questions and addressed any concerns. The patient and/or careg jamee have as good an understanding of the patient 's diagnosis, condition and treatment plan as can be expected at this point. The vital signs have bee n stable. The patient's condition is stable and appr opriate for discharge from the emergency department. The patient will pursue further outpatient evalu ation with the primary care physician or other designated or consulting phys jaysonan as outlined in the discharge instructions. The patient and/or caregivers are agreeable to this plan of care and follow-up instructions have been exp lained in detail. The patient and/or caregivers have received these instructio ns in written format and have expressed an understanding of the discharge inst ructions. The patient and/or caregivers are aware that any significant change in condition or worsening of symptoms should prompt an immediate return to [facility] or the closest emergency department or a call to 911. OvigloryMamie E 11/18/21 1851: HPI-Preg Under 20 Weeks General Confirmed Patient Yes Patient Type New patient Presentation Context: Preg test pending Hx Obtained From Patient Onset Occurred Weeks ago Symptom Duration Since onset Progression since Onset Unchanged Location Suprapubic Quality Cramping Radiation No: None. Severity: Onset Pain level 4 out of 10 Associated with Denies: Blood in urine, Hematuria, Urinary frequ ency, UTI symptoms, Vaginal bleeding, Vaginal discharge, Vomiting. Risk-Preg Under 20 Weeks Risk Stratification Ectopic Risk factors reviewed, No risk factors Past Medical History - Adult Review of Nursing Notes Triage notes reviewed Additional Medical History Denies past medical history Additional Surgical History Denies past surgeries Alcohol Use Denies EtOH use Drug Use Denies recreational drugs Ambulatory Status Independent Physical Exam Vital Signs Review of Vital Signs Reviewed, Vital signs norm al Interpretation Diagnostics Lab Results Interpretation Considerations Independ review imaging, Reviewed prior records Point of Care Testing Pulse Oximetry Pulse Ox % 100 On: Room air Interpretation Interpreted by me, Pulse oximetr y normal Re-Evaluation MDM Differential Diagnosis Differential Diagnosis , threatened, BCP breakthrough bleeding, Discomfort of , Ectopic , Endo metriosis, Intrauterine , Miscarriage, Molar , Urinary tract infection Patient Discharge Departure Clinical Impression Clinical Impression Primary Impression: Abdominal pain during pregna ncy Secondary Impressions: First trimester , Subchorionic hemorrhage in first trimester Quality Measures BP F/U for HTN Referred for BP f/u < 4wk US in Preg w/AP/VB Trans-abd/vag US done, Preg l ocation documented Preg Test for Women w/Abd Pa in Female age 14-50, Complaint of abdominal pn, Any preg test ordered Supervising Physician Note Resident Saw Pt This patient was seen by a resident. I have pers onally seen the patient, performed the critical or hidalgo portions o f the service, and participated in the management of the patient. I have review ed and agree with the resident's note, and I have reviewed all labs , ECGs, and imaging studies or reports. I agree with this resident's findings, exam and plan. HPI: THe patient is a 21 year old female with no previous medical history who presents to the Emergency department wit h a chief complaint of abdominal pain. Onset was three weeks ago. Norris shahana describes the pain as cramping and states her pain is located in the suprapubic area. The pain is currently a 4/10 in severity. The pain is consta nt and does not radiate. She reports three days ago she took a test an d it was positive. Her last menstrual period was on 09/24/2021. She denies fever, vaginal discharge, dysuria, urinary frequency, hematuria. Physical Examination: Constitutional: The patient is well appearing. N on toxic appearing. No acute distress. Head: Atraumatic. Normocephalic. Neck: Supple. Full range of motion is intact. Eyes: Pupils are equal, round and reactive to Li ght. Extraocular movement is intact. No scleral icterus. Oropharynx: Airway is patent. Moist mucus membra betsy. Cardiac: Regular rate. Dee l rhythm. Normal S1 and S2. There are strong radial pulses bilaterally. Respiratory: Lungs are clear to auscultation darius aterally. No respiratory distress is present. Abdomen: Soft. Non tender. Non distended. Musculoskeletal: Moves all four extremities with out difficulty. Normal inspection of all four extremities. Skin: Warm. Dry. Capillary r efill is less than 2 seconds. There is no jaundice, cyanosis or pallor. Neurological: Patient is alert. Oriented x 3. Sp eech is normal. There are no focal neurologic deficits. Psychiatric: Mood is appropriate. Affect is norm al. Thought content is normal and appropriate. MDM: The patient is a 21 year old female with no prev ious medical history who presents to the Emergency department with a lety f complaint of abdominal pain and a positive test at home. History a s above. Vitals are within normal limits. Differential diagnosis as documented above. A urinalysis, urine and pelvic ultrasound was obtained for further evaluation. Urinalysis results and ultrasound was personally reviewed. Urinalysis was negative for infection and positive for pregnanc y. Ultrasound revealed an intrauterine of approximately 6 weeks and 6 days, no evidence of ectopic and a mild to moderate sub chorionic hemorrhage. Patient was informed of her results. She has been instructed to follow up with OB in two weeks and has been given OB Contact information. At this time, she is stable for discharge home. Strict return precautions were g iven. She verbalizes understanding and is agreeable with this plan. S he was discharged in stable condition. Electronically Signed by Abdi Stinson DO R1 on at 1554 Electronically Signed by Mamie Villalobos DO on 0 11/18/21 at 4957 RPT #:[id number] END OF REPORT
[2023-03-19] MEDS ORDERED: IBUPROFEN 200 MG TAB PO ONE (18:04)
[2023-03-19] MEDS ORDERED: IBUPROFEN 400 MG TAB ONE (18:04)
[2023-03-19] MEDS ORDERED: TETANUS & DIPHTHERIA TOX,ADULT 0.5 ML VIAL ONE (18:04)
--- NOTE | 2023-03-19 18:10 | RAD REPORT ---
EXAM DESCRIPTION: CLARICE SAENZ - 03/19/2023 5:54 pm CLINICAL HISTORY: PAIN COMPARISON: No comparisons TECHNIQUE: Left hand, 3 views. FINDINGS: No fracture is identified. There is no dislocation or periosteal reaction noted. Joint alignment is maintained. No foreign body or other soft tissue abnormality. IMPRESSION: No acute osseous abnormality of the left hand.
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
[2023-03-19 19:54] VITALS: O2SAT 100
[2023-03-19 19:57] VITALS: BP 131/69; TEMP 97.6
== END 2023-03-19 19:46 | disposition home or self-care (01) ==
LOC: ER 17:06
DX: S09.90XA Unspecified injury of head, initial encounter (principal); S60.222A Contusion of left hand, initial encounter; Z23 Encounter for immunization; Z88.0 Allergy status to penicillin
CPT/HCPCS: 70450; 90471; 90714; 99284

== ENCOUNTER 2023-08-31 09:10 | Emergency (ER) | payer BC ==
--- OUTSIDE RECORDS SUMMARY | 2023-08-31 09:13 | XMS REPORT | Continuity of Care Document ---
:2000 Author Organization [facility] t Address [address] [place] [address] Care Team Providers Name Role Phone Anuel Gardner Attending Clinician Unavailable Anuel Gardner Admitting Clinician Unavailable Payers Payer Name Policy Type Policy Number Effective Date Expiration Date S ource Problems This patient has no known problems. Allergies, Adverse Reactions, Alerts Allergy Allergy Status Severity Reaction(s) Onset Inactive Treating Comm ents Source Name Type Date Date Clinician Penicill DA Active U [facility]ES [facility] [place] Penicill DA Active [facility] 06[facility] [place] Penicill DA Active U ANAPHYLAXIS [facility] 11-18 [facility] [place] Medications This patient has no known medications. Procedures Procedure Date / Time Performed Performing Clinician Jesus baker [id number] 2022-06-17 00:00:00 MIDJA.01 [facility] [id number] 2022-06-17 00:00:00 MID.01 [facility] [id number] 2022-06-17 00:00:00 MID.01 [facility] Encounters Start End Encounter Admission Attending Care Care Encounter Source Date/Time Date/Time Type Type Clinicians Facility Department ID 2022-06-17 2022-06-19 Inpatient EL Jj [facility] OBPP [id number] [facility] 01:39:00 14:00:00 Anuel 55 [facility] 2022-06-15 2022-06-15 Emergency EM Jj [facility] ANTHONY [id number] [facility] 21:43:00 22:47:00 Anuel 92 [facility] s [facility] Results Test Description Test Time Test [...] MORPHOLOGY REQUIRED (test code = PLTMR) NORMAL AURA L [id number] 09:30:00 Test Item Value Reference Range Interpretation Comments GLUBED (test code = GLUBED) 81 mg/dL 65-110 N RUBELLA [id number] 08:50:00 Test Item Value Reference Range Interpretation Comments RUBELLA SCREEN 91.7 IUnit/ml Results >10. 0IUnits/ml (test code = are considered positive RUBSC) inaccordance wi th the CLSI guidelines and based on the O International S tandard for Anti-Rubell a serum as anindicator of immune status and a br eakpoint to detect mostseropositiv e persons. HGB [id number] 08:10:00 Test Item Value Reference Range Interpretation Comments HEMOGLOBIN (test code = HGB) 9.8 g/dL 10.1-13.8 L HEMATOCRIT (test code = HCT) 31.0 % 32.5-41.8 L LACTIC [id number] 21:11:00 Test Item Value Reference Range Interpretation Comments LACTIC ACID (test code = LACT) 1.3 MMOL/L 0.5-2.2 N LACTIC [id number] 19:21:00 Test Item Value Reference Range Interpretation Comments LACTIC ACID (test 3.0 MMOL/L 0.5-2.2 H RESULTS CA LLED TO code = LACT) TEDDY MURCIA RN.READ BACK & CONFIRME D? Y.BY [id number] 1920.Results ve rified by repeat tory sis CAPILLARY BLOOD [id number] 18:02:00 Test Item Value Reference Range Interpretation [...] 21.0 % code = FIO2C) CAPILLARY BLOOD [id number] 18:01:00 Test Item Value Reference Range Interpretation [...] (test 21.0 % code = FIO2C) LACTIC [id number] 17:30:00 Test Item Value Reference Range Interpretation Comments LACTIC ACID (test 2.2 MMOL/L 0.5-2.2 N RESULTS CA LLED TO code = LACT) REGLA LINDSEY RN.R EAD BACK & CONFIRME D? Y.BY [id number] 1728.Results ve rified by repeat tory sis COMPREHENSIVE METABOLIC [id number] 17:17:00 Test Item Value Reference Range Interpretation [...] units/L 46-116 H code = ALKP) PROTHROMBIN [id number] 16:38:00 Test Item Value Reference Range Interpretation Comments PROTHROMBIN TIME PATIENT (test code 11.1 secs 10.1-12.3 N = PTP) IS PATIENT ON ANTICOAGULANTS ? NINTERNATIONAL NORMAL [id number] 16:38:00 Test Item Value Reference Range Interpretation [...] IS PATIENT ON ANTICOAGULANTS ? NTHROMBOPLASTIN TIME [id number] 16:38:00 Test Item Value Reference Range Interpretation Comments THROMBOPLASTIN TIME PARTIAL (test 29.0 secs 22-38 N code = PTT) IS PATIENT ON ANTICOAGULANTS ? NCBC W/AUTO [id number] 16:12:00 Test Item Value Reference Range Interpretation [...] REQUIRED (test NORMAL NORMAL code = PLTMR) [id number] 12:56:00 Test Item Value Reference Range Interpretation Comments GLUBED (test code = GLUBED) 129 mg/dL 65-110 H AG HEPATITIS B [id number] 05:35:00 Test Item Value Reference Range Interpretation Comments AG HEPATITIS B SURFACE (test code NONREACTIVE NONREACTIVE = HBSAG) AB HEPATITIS C [id number] 05:35:00 Test Item Value Reference Range Interpretation Comments AB HEPATITIS C (test code = NONREACTIVE NONREACTIVE HCVAB) SIGNAL TO CUTOFF (test code = 0.17 <0.80 N CUTOFF) AB [id number] 05:35:00 Test Item Value Reference Range Interpretation Comments AB TREPONEMA (test code = TREPAB) NONREACTIVE NONREACTIVE AB HIV 1 05:35:00 Test Item Value Reference Range Interpretation Comments AB HIV 1 2 (test NONREACTIVE NONREACTIVE Done by [facility] code = [id number]) 4th Gen HIV Ag/Ab Combo Screen [id number] 05:27:00 Test Item Value Reference Range Interpretation Comments GLUCOSE (test code = GLU) 109 mg/dL 65-110 N CBC W/AUTO [id number] 04:00:00 Test Item Value Reference Range Interpretation [...] code = PLTMR) COVID 19 Asymptomatic IH [id number] 03:04:00 Test Item Value Reference Range Interpretation [...] of Accreditation. This test is only authori rollyd for the duration of thedeclaration that circumstances e xist justifying theauthorizatio n of emergency use o f in vitro diagnostic test sfor detection and/o r diagnosis of CO VID-19 under Johmupp79 4(b)(1) of the Act, 21 U.S .C. 360bbb-3(b)(1), unless theauthorizatio n is terminated or r evoked sooner.
[2023-08-31] MEDS ORDERED: ACETAMINOPHEN 500 MG TAB ONE (09:36)
[2023-08-31 10:18] LABS: SARS-COV-2 RT PCR NEGATIVE (NEGATIVE)
[2023-08-31] MEDS ORDERED: NA CHLORIDE 0.9% 1,000 ML ONE ×2 (10:37→12:28)
[2023-08-31 11:03] LABS: Absolute Lymphocytes (CBC) 0.4 K/uL (0.7-4.9); Hematocrit 35.9 % (36.0-45.0); MCV 70.1 fL (80-100); MPV 7.9 fL (7.6-11.3); Platelets 316 thou/uL (152-406); RBC Red Blood Cell Count 5.12 M/uL (3.86-4.86)
[2023-08-31 11:04] LABS: Specific Gravity 1.015 (1.005-1.030); Urine Bacteria 20-50 /HPF (<20); Urine Bilirubin NEGATIVE (Negative); Urine Blood 3+ (Negative); Urine Clarity Extremely Turbid (Clear); Urine Color Light-Yellow (Yellow); Urine Glucose NEGATIVE (Negative); Urine Protein 1+ (Negative); Urine Urobilinogen Normal (Normal); Urine WBC Clump Rare /HPF (None Seen)
[2023-08-31 11:05] LABS: Specific Gravity 1.015 (1.005-1.030)
[2023-08-31 11:27] LABS: Albumin 3.3 g/dL (3.4-5.0); Bilirubin Total 1.4 mg/dL (0.2-1.0); Potassium 3.5 mEq/L (3.5-5.1); Protein, Total 7.6 g/dL (6.4-8.2)
[2023-08-31] MEDS ORDERED: CEFTRIAXONE 1000 MG/VIAL ONE (11:30)
[2023-08-31 11:54] LABS: Blood Morphology Comment NOT SEEN (NOT SEEN); Platelet Estimate ADEQ; White Blood Cell Scan OK (OK)
--- NOTE | 2023-08-31 12:49 | ER ---
Nurse's Notes [facility] Name: Bing Martin Age: 23 yrs Sex: Female : 2000 Arrival Date: 08/31/2023 Time: 09:10 Bed 12 Private MD: Diagnosis: UTI/ Urinary tract infection, site not specified;Dehydration Presentation: 08/31 09:16 Chief complaint: Patient states: Fever, Chills, dizziness X 2 days. Coronavirus screen: ld1 At this time, the client does not indicate any symptoms associated with coronavirus-19. Ebola Screen: No symptoms or risks identified at this time. Initial Sepsis Screen: Does the patient meet any 2 criteria? No. Patient's initial sepsis screen is negative. Does the patient have a suspected source of infection? No. Patient's initial sepsis screen is negative. Risk Assessment: Do you want to hurt yourself or someone else? Patient reports no desire to harm self or others. Onset of symptoms was August 31, 2023. 09:16 Method Of Arrival: Wheelchair ld1 09:16 Acuity: TORREY 3 ld1 Triage Assessment: 09:18 General: Appears in no apparent distress. uncomfortable, Behavior is calm, cooperative, ld1 appropriate for age. Pain: Denies pain. EENT: No signs and/or symptoms were reported regarding the EENT system. Neuro: Level of Consciousness is awake, alert, obeys commands, Oriented to person, place, time, situation. Cardiovascular: Capillary refill < 3 seconds Patient's skin is warm and dry. Respiratory: Airway is patent Respiratory effort is even, unlabored. GI: Abdomen is round non-distended. : No signs and/or symptoms were reported regarding the genitourinary system. Derm: Skin temperature is warm. Musculoskeletal: No signs and/or symptoms reported regarding the musculoskeletal system. 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 - Social history:: Smoking status: Patient denies any tobacco usage or history of. Patient/guardian denies using alcohol. Screenin:06 [facility] ED Fall Risk Assessment (Adult) History of falling in the last 3 months, tm6 including since admission No falls in past 3 months (0 pts). Abuse screen: Denies threats or abuse. Denies injuries from another. Nutritional screening: No deficits noted. Tuberculosis screening: No symptoms or risk factors identified. Assessment: 11:06 General: Appears in no apparent distress. Behavior is calm, cooperative, appropriate tm6 for age. Pain: Denies pain. Neuro: Level of Consciousness is awake, alert, obeys commands, Oriented to person, place, time, situation, Appropriate for age Reports dizziness. Cardiovascular: Capillary refill < 3 seconds Patient's skin is warm and dry. Rhythm is sinus tachycardia. Respiratory: Airway is patent Respiratory effort is even, unlabored, Respiratory pattern is regular, symmetrical. GI: No signs and/or symptoms were reported involving the gastrointestinal system. GI: Abdomen is round non-distended. : No signs and/or symptoms were reported regarding the genitourinary system. EENT: No signs and/or symptoms were reported regarding the EENT system. Derm: No signs and/or symptoms reported regarding the dermatologic system. Musculoskeletal: No signs and/or symptoms reported regarding the musculoskeletal system. 11:23 Reassessment: Patient appears in no apparent distress at this time. Patient and/or tm6 family updated on plan of care and expected duration. Pain level reassessed. 12:13 Reassessment: Patient appears in no apparent distress at this time. tm6 13:49 Reassessment: Patient appears in no apparent distress at this time. Patient and/or tm6 family updated on plan of care and expected duration. Pain level reassessed. Vital Signs: 09:16 BP 130 / 99; Pulse 132; Resp 18; Temp 100.3(TE); Pulse Ox 99% on R/A; Weight 72.57 kg; ld1 Height 5 ft. 6 in. ; Pain 0/10; 10:54 BP 120 / 64; Pulse 123; Resp 16; Temp 100.3; Pulse Ox 99% on R/A; kj1 11:22 BP 127 / 63; Pulse 117; Resp 32; Pulse Ox 97% ; tm6 12:12 BP 126 / 68; Pulse 103; Resp 10; Pulse Ox 96% on R/A; tm6 12:16 Temp 99.9(O); tm6 09:16 Body Mass Index 25.82 (72.57 kg, 167.64 cm) ld1 09:16 Pain Scale: Adult ld1 ED Course: 09:14 Patient arrived in ED. im 09:14 Tonya Green, JARODC is PHCP. snw 09:15 Zacarias Amos MD is Attending Physician. snw 09:18 Triage completed. ld1 09:18 Arm band placed on right wrist. EKG completed in triage. Results shown to MD. ld1 09:28 COVID-19/FLU A+B Sent. kj1 09:53 COVID-19/FLU A+B Sent. ld1 10:23 Drea Alicia, RN is Primary Nurse. 3 10:54 Initial lab(s) drawn, First set of blood cultures drawn. Inserted saline lock: 20 gauge kj1 in right antecubital area, using aseptic technique. Blood collected. 11:06 Patient has correct armband on for positive identification. Bed in low position. Call tm6 light in reach. Side rails up X2. 11:08 Provided Education on: labs. Client placed on continuous cardiac and pulse oximetry tm6 monitoring. NIBP monitoring applied. nuclear monitoring technician on. Door closed. Noise minimized. Warm blanket given. 11:08 Second set of blood cultures drawn by ED staff. tm6 11:09 No provider procedures requiring assistance completed. tm6 13:12 Primary Nurse role handed off by Drea Alicia, RISHI tm6 13:48 Ira Costa, RISHI is Primary Nurse. tm6 13:49 IV discontinued, intact, bleeding controlled. tm6 Administered Medications: 09:24 Drug: Acetaminophen PO 1000 mg PO once Route: PO; ld1 11:05 Drug: NS 0.9% IV 1000 ml IV at 1 bolus Per protocol; 1000 mL bolus Route: IV; Rate: 1 tm6 bolus; Site: right antecubital; 11:25 Drug: Rocephin IV 1 grams IV at calculated rate once; Given slow IV push per pharmacy tm6 instructions Route: IV; Rate: calculated rate; Site: right antecubital; 12:16 Drug: NS 0.9% IV 1000 ml IV at 1 bolus Per protocol; 1000 mL bolus Route: IV; Rate: 1 tm6 bolus; Site: right antecubital; Medication: 11:06 VIS not applicable for this client. tm6 Outcome: 12:49 Discharge ordered by MD. mcpherson 13:12 Patient left the ED. tm6 13:49 Discharged to home ambulatory, tm6 13:49 Condition: improved 13:49 Discharge instructions given to patient, family, Instructed on discharge instructions, follow up and referral plans. medication usage, Demonstrated understanding of instructions, follow-up care, medications, Prescriptions given X 2, 13:49 Patient left the ED. tm6 Addendum: 09/03/2023 10:21 Addendum: Culture Results: Positive urine culture. Bacteria is resistant to, has j l7 intermediate sensitivity, or is not tested against prescribed antibiotics. Report given to CHRISTOPHER for further evaluation and then to internal controls specialist for follow up with patient. Phone call Attempt #1 no answer, left voicemail. 09/06/2023 07:56 Addendum: Culture Results: Positive urine culture. Bacteria is resistant to, has j l7 intermediate sensitivity, or is not tested against prescribed antibiotics. Report given to CHRISTOPHER for further evaluation and then to internal controls specialist for follow up with patient. Phone call Attempt #2 No answer, left voicemail. 09/07/2023 07:56 Addendum: Culture Results: Positive urine culture. Bacteria is resistant to, has a p3 intermediate sensitivity, or is not tested against prescribed antibiotics. Report given to CHRISTOPHER for further evaluation and then to internal controls specialist for follow up with patient. Phone call Attempt #3 spoke with patient. patient reports that her symptoms have improved and she does not wish to have any further antibiotics sent at this time. Patient was instructed by this nurse that if her symptoms return, to follow up with her PCP. Signatures: Tonya Green, FLORAL DESIGNER SALESPERSON-C FLORAL DESIGNER SALESPERSON-Csnw Otilio Castorena, RN RN [id number] Julia Herrmann RN RN janet3 Cee Fulton kj1 Luciana Terrell RN RN ld1 Drea Alicia RN RN [id number] Rosa Dupree Tawney RN RN tm6
--- NOTE | 2023-08-31 12:50 | EDPHYS ---
Physician Documentation [facility] Name: Bing Martin Age: 23 yrs Sex: Female : 2000 Arrival Date: 08/31/2023 Time: 09:10 Bed 12 Private MD: ED Physician Zacarias Amos HPI: 08/31 09:47 This 23 yrs old Black Female presents to ER via Wheelchair with complaints of snw Dizziness, General Weakness. 09:47 The patient presents with lightheadedness, feeling off balance. Onset: The snw symptoms/episode began/occurred acutely. Context:. 09:47 The patient reports fever, not measured (subjective). Associated signs and symptoms: snw Pertinent positives: arthralgias, decreased appetite, headache, sinus congestion, dizziness. Severity of symptoms: At their worst the symptoms were moderate severe in the emergency department the symptoms are unchanged. The patient has not experienced similar symptoms in the past. The patient has not recently seen a physician. 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 - Social history:: Smoking status: Patient denies any tobacco usage or history of. Patient/guardian denies using alcohol. ROS: 09:47 Eyes: Negative for injury, pain, redness, and discharge, ENT: Negative for injury, snw pain, and discharge, Neck: Negative for injury, pain, and swelling, Cardiovascular: Negative for chest pain, palpitations, and edema, Respiratory: Negative for shortness of breath, cough, wheezing, and pleuritic chest pain, Abdomen/GI: Negative for abdominal pain, nausea, vomiting, diarrhea, and constipation, Back: Negative for injury and pain, : Negative for injury, bleeding, discharge, and swelling, MS/Extremity: Negative for injury and deformity, Skin: Negative for injury, rash, and discoloration, 09:47 Psych: Negative for depression, anxiety, suicide ideation, homicidal ideation, and hallucinations, 09:47 Constitutional: Positive for body aches, chills, fatigue, fever, malaise, poor PO intake, 09:47 Neuro: Positive for dizziness, weakness, Exam: 09:46 Head/Face: Normocephalic, atraumatic. Eyes: Pupils equal round and reactive to light, snw extra-ocular motions intact. Lids and lashes normal. Conjunctiva and sclera are non-icteric and not injected. Cornea within normal limits. Periorbital areas with no swelling, redness, or edema. ENT: Nares patent. No nasal discharge, no septal abnormalities noted. Tympanic membranes are normal and external auditory canals are clear. Oropharynx with no redness, swelling, or masses, exudates, or evidence of obstruction, uvula midline. Mucous membranes moist. Neck: Trachea midline, no thyromegaly or masses palpated, and no cervical lymphadenopathy. Supple, full range of motion without nuchal rigidity, or vertebral point tenderness. No Meningismus. Chest/axilla: Normal chest wall appearance and motion. Nontender with no deformity. No lesions are appreciated. 09:46 Respiratory: Lungs have equal breath sounds bilaterally, clear to auscultation and percussion. No rales, rhonchi or wheezes noted. No increased work of breathing, no retractions or nasal flaring. Abdomen/GI: Soft, non-tender, with normal bowel sounds. No distension or tympany. No guarding or rebound. No evidence of tenderness throughout. Back: No spinal tenderness. No costovertebral tenderness. Full range of motion. Skin: Warm, dry with normal turgor. Normal color with no rashes, no lesions, and no evidence of cellulitis. MS/ Extremity: Pulses equal, no cyanosis. Neurovascular intact. Full, normal range of motion. Neuro: Awake and alert, GCS 15, oriented to person, place, time, and situation. Cranial nerves II-XII grossly intact. Motor strength 5/5 in all extremities. Sensory grossly intact. Cerebellar exam normal. Normal gait. Psych: Awake, alert, with orientation to person, place and time. Behavior, mood, and affect are within normal limits. 09:46 Constitutional: The patient appears awake, listless, obviously ill, uncomfortable, 09:46 Cardiovascular: Rate: tachycardic, Rhythm: regular, Heart sounds: normal, Vital Signs: 09:16 BP 130 / 99; Pulse 132; Resp 18; Temp 100.3(TE); Pulse Ox 99% on R/A; Weight 72.57 kg; ld1 Height 5 ft. 6 in. ; Pain 0/10; 10:54 BP 120 / 64; Pulse 123; Resp 16; Temp 100.3; Pulse Ox 99% on R/A; kj1 11:22 BP 127 / 63; Pulse 117; Resp 32; Pulse Ox 97% ; tm6 12:12 BP 126 / 68; Pulse 103; Resp 10; Pulse Ox 96% on R/A; tm6 12:16 Temp 99.9(O); tm6 09:16 Body Mass Index 25.82 (72.57 kg, 167.64 cm) ld1 09:16 Pain Scale: Adult ld1 MDM: 09:21 Patient medically screened. snw 09:48 Differential diagnosis: viral Infection, bacterial infection. Data reviewed: vital snw signs, nurses notes. 12:51 I considered the following discharge prescriptions or medication management in the [facility] emergency department Medications were administered in the Emergency Department. See MAR. Post IV fluid administration reassessment for Sepsis: Neuro: Neurological examination improved from previous exam. Cardio: Cardiovascular examination improved from previous exam. Heart rate and blood pressure have improved. Response to treatment: the patient's symptoms have markedly improved after treatment. Special discussion: Based on the history and exam findings, there is no indication for further emergent testing or inpatient evaluation. I discussed with the patient/guardian the need to see the primary care provider for further evaluation of the symptoms. 08/31 09:25 Order name: COVID-19/FLU A+B; Complete Time: 10:18 ld1 08/31 10:18 Order name: Urine W/Microscopic (UAM); Complete Time: 11:08 snw 08/31 10:18 Order name: PREGU; Complete Time: 11:08 snw 08/31 10:19 Order name: CBC with Diff; Complete Time: 11:58 snw 08/31 10:19 Order name: CMP; Complete Time: 11:29 snw 08/31 10:38 Order name: TSH; Complete Time: 11:51 snw 08/31 10:38 Order name: Blood Culture Adult (2) snw 08/31 10:38 Order name: Lactate w/ 2H reflex if indic.; Complete Time: 11:29 snw 08/31 11:07 Order name: Urine Culture EDAK 08/31 11:55 Order name: CBC Smear Scan; Complete Time: 11:58 EDMS Administered Medications: 09:24 Drug: Acetaminophen PO 1000 mg PO once Route: PO; ld1 11:05 Drug: NS 0.9% IV 1000 ml IV at 1 bolus Per protocol; 1000 mL bolus Route: IV; Rate: 1 tm6 bolus; Site: right antecubital; 11:25 Drug: Rocephin IV 1 grams IV at calculated rate once; Given slow IV push per pharmacy tm6 instructions Route: IV; Rate: calculated rate; Site: right antecubital; 12:16 Drug: NS 0.9% IV 1000 ml IV at 1 bolus Per protocol; 1000 mL bolus Route: IV; Rate: 1 tm6 bolus; Site: right antecubital; Disposition Summary: 08/31/23 12:49 Discharge Ordered Notes: Location: Home snw Condition: Stable snw Diagnosis - UTI/ Urinary tract infection, site not specified snw - Dehydration snw Followup: snw - With: Emergency Department - When: As needed - Reason: Worsening of condition Followup: snw - With: Private Physician - When: 5 - 6 days - Reason: Recheck today's complaints, Continuance of care, Re-evaluation by your physician Discharge Instructions: - Discharge Summary Sheet snw - Dehydration, Adult snw - Urinary Tract Infection, Adult snw - Rehydration, Adult snw Forms: - Work release form snw - Medication Reconciliation Form snw - Thank You Letter snw - Antibiotic Education snw - Prescription Opioid Use snw - Patient Portal Instructions snw - Leadership Thank You Letter snw Prescriptions: - Bactrim DS 800-160 mg Oral Tablet - take 1 tablet ORAL route every 12 hours for 10 days; 20 tablet; Refills: 0, snw Product Selection Permitted - promethazine 25 mg Oral Tablet - take 1 tablet ORAL route every 6 hours As needed; 20 tablet; Refills: 0, snw Product Selection Permitted Signatures: Dispatcher [employer] [facility] Tonya Green FNP-C TRAFFIC COORDINATOR-Madiw Luciana Terrell RN RN ld1 Ira Costa RN RN tm6 Corrections: (The following items were deleted from the chart) 09:41 09:23 SARS-COV-2 RT PCR+[id number] ordered. EDMS EDMS
[2023-08-31 14:20] VITALS: BP 126/68; TEMP 99.9; O2SAT 96
--- NOTE | 2023-09-04 14:27 | EKG ---
Test Date: 2023-08-31 Test Time: 10:23:44 Clip Loading Machine Adjuster: NAMRATA MEASUREMENT RESULTS: Intervals: Rate: 134 SD: 130 QRSD: 80 QT: 268 QTc: 400 [place]: P: 67 SD: 130 QRS: 61 T: -17 INTERPRETIVE STATEMENTS: Sinus tachycardia Septal infarct, age undetermined Abnormal ECG No previous ECG available for comparison Electronically Signed On 09-04-23 14:15:14 SCREWHEAD STONER AND POLISHER by Bethel Landers
== END 2023-08-31 13:49 | disposition home or self-care (01) ==
LOC: ER 09:10
DX: N39.0 Urinary tract infection, site not specified (principal); E86.0 Dehydration; Z11.52 Encounter for screening for COVID-19; Z88.0 Allergy status to penicillin
CPT/HCPCS: 93005; 87040 ×2; 87088; 85025; 81001; 87086; 36415; 81025; 83605; 84443; 87077; 87186; 80053; 0240U; 96374; 99285; J7030 ×2; J0696

== ENCOUNTER 2024-02-22 20:31 | Emergency (ER) | payer BC ==
--- OUTSIDE RECORDS SUMMARY | 2024-02-22 20:35 | XMS REPORT | Continuity of Care Document ---
Author Name Unknown Address [address] [place] [place] [address] [facility] thconnect Address [address] [place] [address] Care Team Providers Care South Asian History Professor Name Role Phone Chuy Gardner Attending Clinician Unavailab Chuy Macias Admitting Clinician Unavailab chris Payers Payer Name Policy Type Policy Number Effective Date Expirati on Date Source Allergies, Adverse Reactions, Alerts Allergy Name Allergy Type Status Severity Reaction(s) Onset Date Inactive Date Treating Clinician Comments Source Penicill ins DA Active U HIVES 06-17 00:00: 00 [facility] Penicill ins DA Active U HIVES 06-15 00:00: 00 [facility] Penicill ins DA Active U ANAPHYLAXIS 11-18 00:00: 00 [facility] Procedures Procedure Date / Time Performed Performing Clinicia n Source [id number] 2022-06-17 00:00:00 MIDJA.01 [facility] [id number] 2022-06-17 00:00:00 MIDJA.01 [facility] [id number] 2022-06-17 00:00:00 MID.01 [facility] Encounters Start Date/Time End Date/Time Encounter Type Admission Type Attending Clinicians Care Facility Care Department Encounter ID Source 2022-06-17 01:39:00 2022-06-19 14:00:00 Inpatient EL Chuy Gardner [facility] OBPP [id number] [facility] 2022-06-15 21:43:00 2022-06-15 22:47:00 Emergency EM Chuy Gardner [facility] RADHA [id number] [facility] Results Test Description Test Time Test Comments Results Result Co mments Source [id number] 09:30:00* Test Item Value Reference Range Interpretation Comme nts GLUBED (test code = GLUBED) 81 mg/dL 65-110 N RUBELLA [id number] 08:50:00* Test Item Value Reference Range Interpretation Comme nts RUBELLA SCREEN (test code = RUBSC) 91.7 IUnit/ml Results >10.0IUn its/ml are considered positive inaccordance with the CLSI guidelines and based on the WHO International Standard for Anti-Rubella serum as anindicator of immune status and a breakpoint to detect mostseropositive persons. HGB [id number] 08:10:00* Test Item Value Reference Range Interpretation Comme nts HEMOGLOBIN (test code = HGB) 9.8 g/dL 10.1-13.8 L HEMATOCRIT (test code = HCT) 31.0 % 32.5-41.8 L LACTIC [id number] 21:11:00* Test Item Value Reference Range Interpretation Comme nts LACTIC ACID (test code = LACT) 1.3 MMOL/L 0.5-2.2 N LACTIC [id number] 19:21:00* Test Item Value Reference Range Interpretation Comme nts LACTIC ACID (test code = LACT) 3.0 MMOL/L 0.5-2.2 H RESULTS CALLED Kemar MURCIA RN.READ BACK & CONFIRMED? Y.BY [id number] 06/17/221920.Results verified by repeat analysis CAPILLARY BLOOD [id number] 18:02:00* Test Item Value Reference Range Interpretation Comme nts CAPILLARY BLOOD GAS PH (test code = PHC) 7.231 7.35-7.45 L CAPILLARY BLOOD GAS PCO2 (te st code = PCO2C) 55.4 mmHg CAPILLARY BLOOD GAS PO2 (toma t code = PO2C) 14.1 mmHg CBG HCO3 (test code = HCO3C) 22.7 meq/L CBG BASE EXCESS (test code = BEC) -5.5 CAPILLARY BLOOD GAS TYPE (te st code = TYPEC) CBLV CAPILLARY BLOOD GAS FIO2 (te st code = FIO2C) 21.0 % CAPILLARY BLOOD [id number] 18:01:00* Test Item Value Reference Range Interpretation Comme nts CAPILLARY BLOOD GAS PH (test code = PHC) 7.155 7.35-7.45 LL CAPILLARY BLOOD GAS PCO2 (te st code = PCO2C) 71.6 mmHg CAPILLARY BLOOD GAS PO2 (toma t code = PO2C) 10.8 mmHg CBG HCO3 (test code = HCO3C) 24.7 meq/L CBG BASE EXCESS (test code = BEC) -5.7 CAPILLARY BLOOD GAS TYPE (te st code = TYPEC) CBLA CAPILLARY BLOOD GAS FIO2 (te st code = FIO2C) 21.0 % LACTIC [id number] 17:30:00* Test Item Value Reference Range Interpretation Comme nts LACTIC ACID (test code = LACT) 2.2 MMOL/L 0.5-2.2 N RESULTS CALLED T Kimberly LINDSEY RN.READ BACK & CONFIRMED? Y.BY [id number] 06/17/221728.Results verified by repeat analysis COMPREHENSIVE METABOLIC [id number] 17:17:00* Test Item Value Reference Range Interpretation Comme nts SODIUM (test code = NA) 137 mEq/L 135-145 N POTASSIUM (test code = K) 4.0 mEq/L 3.5-5.0 N CHLORIDE (test code = CL) 103 mEq/L 100-115 N CARBON DIOXIDE (test code = CO2) 25 mEq/L 22-31 N ANION GAP (test code = GAP) 12.60 10-20 N GLUCOSE (test code = GLU) 86 mg/dL 65-110 N BLOOD UREA NITROGEN (test co de = BUN) 5 mg/dL 7-18 L GLOMERULAR FILTRATION RATE ( test code = GFR) 100 ml/min >60 N CREATININE (test code = CREAT) 0.8 mg/dL 0.5-1.0 N TOTAL PROTEIN (test code = PROT) 7.2 gm/dL 6.3-8.2 N ALBUMIN (test code = ALB) 3.0 gm/dL 3.4-4.8 L CALCIUM (test code = CA) 8.8 mg/dL 8.4-10.2 N BILIRUBIN TOTAL (test code = BILT) 0.3 mg/dL 0.2-1.0 N SGOT/AST (test code = AST) 24 units/L 15-37 N SGPT/ALT (test code = ALT) 22 units/L 12-78 N ALKALINE PHOSPHATASE TOTAL ( test code = ALKP) 137 units/L 46-116 H PROTHROMBIN [id number] 16:38:00* Test Item Value Reference Range Interpretation Comme [facility] PROTHROMBIN TIME PATIENT (te st code = PTP) 11.1 secs 10.1-12.3 N IS PATIENT ON ANTICOAGULANTS ? NINTERNATIONAL NORMAL [id number] 16:38:00* Test Item Value Reference Range Interpretation Comme [facility] INTERNATIONAL NORMAL RATIO (test code = INR) 0.97 The INR is to be used only for monitoring oral anticoagulanttherapy. INDICATION INR VALUE 1. Prophylaxis including high risk surgery 2.0 - 2.52. Deep venous thrombosis. Pulmonary embolism. Atrial fibrillation or bioprosthetic heart valves 2.0 - 3.03. Mechanical heart valves or recurrent systemic embolism. 3.0 - 3.5 IS PATIENT ON ANTICOAGULANTS ? NTHROMBOPLASTIN TIME [id number] 16:38:00* Test Item Value Reference Range Interpretation Comme [facility] THROMBOPLASTIN TIME PARTIAL (test code = PTT) 29.0 secs 22-38 N IS PATIENT ON ANTICOAGULANTS ? NCBC W/AUTO [id number] 16:12:00* Test Item Value Reference Range Interpretation Comme [facility] WHITE BLOOD CELL (test code = WBC) [...] pg 27.3-33.9 L MEAN CELL HGB CONCETRATION ( test code = MCHC) 31.2 gm/dL 32.0-34.2 L RED CELL DISTRIBUTION WIDTH (test code = RDW) 15.8 % 12.2-16.3 N PLATELET COUNT (test code = PLT) 338 K/mm3 134-363 N MEAN PLATELET VOLUME (test c ode = MPV) 10.1 fL 9.2-12.7 N NEUTROPHIL % (test code = NT%) 83.5 [...] = BA#) 0.0 K/mm3 RBC MORPHOLOGY REQUIRED (toma t code = RBCM) NORMAL NORMAL PLATELET MORPHOLOGY REQUIRED (test code = PLTMR) NORMAL NORMAL [id number] 12:56:00* Test Item Value Reference Range Interpretation Comme nts GLUBED (test code = GLUBED) 129 mg/dL 65-110 H AG HEPATITIS B [id number] 05:35:00* Test Item Value Reference Range Interpretation Comme nts AG HEPATITIS B SURFACE (test code = HBSAG) NONREACTIVE NONREACTIVE AB HEPATITIS C [id number] 05:35:00* Test Item Value Reference Range Interpretation Comme nts AB HEPATITIS C (test code = HCVAB) NONREACTIVE NONREACTIVE SIGNAL TO CUTOFF (test code = CUTOFF) 0.17 <0.80 N AB [id number] 05:35:00* Test Item Value Reference Range Interpretation Comme nts AB TREPONEMA (test code = TREPAB) NONREACTIVE NONREACTIVE AB HIV 1 05:35:00* Test Item Value Reference Range Interpretation Comme nts AB HIV 1 2 (test code = WOA88KA) NONREACTIVE NONREACTIVE Done by [employer] [facility] HIV Ag/Ab Combo Screen [id number] 05:27:00* Test Item Value Reference Range Interpretation Comme nts GLUCOSE (test code = GLU) 109 mg/dL 65-110 N CBC W/AUTO [id number] 04:00:00* Test Item Value Reference Range Interpretation Comme [...] pg 27.3-33.9 L MEAN CELL HGB CONCETRATION ( test code = MCHC) 31.3 gm/dL 32.0-34.2 L RED CELL DISTRIBUTION WIDTH (test code = RDW) 15.8 % 12.2-16.3 N PLATELET COUNT (test code = PLT) 356 K/mm3 134-363 N MEAN PLATELET VOLUME (test c ode = MPV) 9.7 fL 9.2-12.7 N NEUTROPHIL % (test code = NT%) 73.9 [...] = BA#) 0.0 K/mm3 RBC MORPHOLOGY REQUIRED (toma t code = RBCM) NORMAL NORMAL PLATELET MORPHOLOGY REQUIRED (test code = PLTMR) NORMAL NORMAL COVID 19 Asymptomatic IH [id number] 03:04:00* Test Item Value Reference Range Interpretation Comme nts COVID 19 Asymptomatic IH AG (test code = COVNONPUIAG) NEGATIVE NEGATIVE This test has be en authorized only for the detection ofproteins from SARS-CoV-2, not for any other viruses orpathogens. Negative results should be treated as presumptive andconfirmed with a molecular assay, if necessary for patientmanagement. Negative results do not rule out COVID-19 andshould not be used as the sole basis for treatment orpatient management decisions, including infection controldecisions. Negative results should be considered in thecontext of a patient's recent exposures, history and thepresence of clinical signs and symptoms consistent withCOVID-19. This test has not been FDA cleared or approved; the test hasbeen authorized by FDA under an Emergency Use Authorization(EUA) for use by laboratories certified under the CLIA thatmeet the requirements to perform moderate, high or waivedcomplexity tests. This test is authorized for use at thePoint of Care (POC), i.e., in patient care settingsoperating under a CLIA Certificate of Waiver, Certificate ofCompliance, or Certificate of Accreditation. This test is only authorized for the duration of thedeclaration that circumstances exist justifying theauthorization of emergency use of in vitro diagnostic testsfor detection and/or diagnosis of COVID-19 under Clddgee196(b)(1) of the Act, 21 U.S.C. 360bbb-3(b)(1), unless theauthorization is terminated or revoked sooner. Notes Date/Time Note Provider Source 2022-06-19 08:42:00 [id number] +[id number]+[id number]:42:00 [facility]ob disch postpartumreport#:[id number] report status: signeddate:06/19/22 time: 841 patient: vanesa swift unit #: [id number]#: [id number] room/bed: ob: 00 age: 22 sex: f attend: chuy gardner mdadm dt: 06/17/22 author: chuy gardner md * all edits or amendments must be made on the electronic/computer document * subjective subjectiveadmission ega: weeks: 37 days: 3ega at delivery (wks/days): 37 weeksstatus/day: post , ppd # 2patient reports: patient reports: yes: normal lochia, pain management effective, tolerating po well, voiding well, voiding without pain, tolerating ambulation, flatus. no: complaints, bowel movement, nausea, vomiting. nursing reports: nursing reports: no: complaints. comments:denies fever or chills, reports desire to go home today objective generalvs:vital signs date temp pulse resp b/p b/p mean pulse ox fio2 06/18 98.7 85 20 118/79 last documented: result date time b/p 118/79 06/18 1636 temp 98.7 06/18 1636 pulse 85 06/18 1636 resp 20 06/18 1636 b/p mean 81.0 06/17 2040 pulse ox 98 06/17 2040 patient weight: weight (lb): 183weight (oz): 6.79weight (kg): 83.200 physical examcardiac: normal rhythmlungs: unlabored breathingneuro: exam: alert, oriented x3, normal speechabdomen: post gravid, soft, no abnormal tenderness, no guarding, no rebound tenderness, normoactive bowel soundsincision site: noneuterus: involution appropriate, non-tenderfundus: firm, non-tenderlochia: normallower extremities: edema: none resultsfindings/data:laboratory tests: 06/18 06/17 06/17 06/17 06/17 0759 2021 1815 1757 1756 blood gas capillary ph [...] gram stain - res blood discharge summary generalproblem list/a p: 1. pregestational diabetes mellitus, modified white class b 2. htn in , chronic free text a p:22y/o g1 admitted for srom, labor, history of type 2 dm on metformin, suspected chtn not on meds-pt remianed in ocbd awaiting l d for some time-once in room, labor was augmentedpt with elevated temp and tachycardia, tachycardia dimitrios noted prompting code sepsis -pt was on ancef for unknokn gbs status, was then placed on gent and clindapt progressd to c/c/+1, went on to have vavd, indicated for nr fhr-, live male, requiring resuscitation with nicu staff at bedside immediately after , see delivery record and 's chart for detailspt had 2nd degree lacerations, repairedppd # 1 continued on iv antibiotics, now off, remains afebrial > 24 hr-pt is doig well, meeting milestones for discharge, and desires dischargeinfant will remain i house in nicu for unknown eriod of time, but seems to be clinically improving assessment: nml progress, acute blood loss anemia, iai, treated with iv antibioticsdate of admission:date of admission: 06/17/22 admission diagnosis: hambivas-vus-lbisdwgx, labor-spontaneoushospital course: spontaneous labor, augmentation of labor, vacuum assist vag deliv, epidural anesthesia, see note aboveprocedures: epidural anesthesia, vacuum vaginal deliverydischarge condition: stabledischarge to: home/self caredischarge diagnosis: pre-existing diabetes, anemia, other gu infectionbaby a: vaginal delivery: operative vag del vacuum status: live born gender: male 1 minute: 2 5 minutes: 4 10 minutes: 4vaginal packing at delivery: no discharge instructionsinstructions: routine instr sheet givendiet: regularactivity: no intercourse for 6 wks, no strenuous activityadditional discharge routines: attending follow-upcontraception discussed: abstinence for 4-6 weeks, will discuss at pp visitdischarge meds:stop taking the following medications:metformin (glucophage) 1,000 mg tab 1,000 milligram oral twice daily. continue taking these medications:pnv/fe fum/fa ( multivitamin) 28 mg iron-800 mcg tab 1 tablet oral daily. start taking the following new medications:acetaminophen (tylenol) 500 mg tab 500 milligram oral every 4 hours as needed. as needed for pain scale 1-3 (use 1st) qty = 30 no refills ibuprofen (motrin) 800 mg tab 800 milligram oral every 8 hr as needed. as needed for pain scale 1-3 (use 2nd) qty = 30 no refills docusate sodium (colace) 100 mg cap 100 milligram oral bedtime. as needed for constipation qty = 30 no refills metformin (glucophage) 500 mg tab 500 milligram oral twice daily with meals. qty = 60 no refills ferrous sulfate (feosol) 325 mg (65 mg iron) tab 325 milligram oral daily. qty = 30 no refills prescriptions: e-prescribe add'l follow-up appointmentsattending physician: attending physician: chuy gardner md phone: [phone] attending physician follow up timeframe: in 3-4 weeks special instructions:pelvic rest electronically signed by chuy gardner md on 06/19/22 at 1328 rpt #:[id number] of report CLClinical [id number]:42:00F.[id number] able for patient [id number]:28:30 [facility] 2022-06-18 14:06:00 [id number]/[id number]:06:00 [facility]ob postpart progr notereport#:[id number] report status: signeddate:06/18/22 time: 1406 patient: vanesa swift unit #: [id number]#: [id number] room/bed: 2021-adob: 00 age: 22 sex: f attend: chuy gardner mdadm dt: 06/17/22 author: chuy gardner md * all edits or amendments must be made on the electronic/computer document * subjective subjectiveadmission ega: weeks: 37 days: 3ega at delivery (wks/days): 37 weeksstatus/day: post , ppd # 1patient reports: patient reports: yes normal lochia, yes pain management effective, yes tolerating po well, yesvoiding well, yes voiding without pain, yes tolerating ambulation, yes flatus, no no complaints, no nausea, no vomiting, no excessive bleeding, no headache, noblurred visionnursing reports: nursing reports: no complaintscomments:pt ambulating well, back and forth to nicu. infant improving, optimistic about progress. no f/c. objective nursing documentation reviewnursing data:the data set between the solid lines has been imported from nursing documentation. any exceptions have been noted below under provider comments. feeding preference: post hemorrhage risk score: low risk for hemorrhage. provider comments on imported nursing data: [] generalvs:vital signs: date time temp pulse resp b/p b/p pulse o2 o2 flow fio2 mean ox delivery rate 06/18 814 98.9 98 20 119/77 06/17 2121 98.5 91 116/75 06/17 2040 81.0 06/17 2040 78 121/57 98 06/17 2035 86 99 06/17 2030 91 99 06/17 2025 84.0 06/17 2025 94 122/58 99 06/17 2020 97 99 06/17 2015 93 98 06/17 2011 82.0 06/17 2011 98 120/57 06/17 2010 98 94 06/17 2005 83 98 06/17 2000 105 98 06/17 1956 100 94 06/17 1955 91 95 06/17 [...] 06/17 1845 117 100 06/17 1840 16 06/17 1840 84.0 06/17 1840 105 128/55 100 06/17 1835 111 100 08/24 1830 111 100 06/17 1827 16 06/17 1827 88.0 06/17 1827 107 130/62 08 1825 109 100 06/17 1820 114 100 06/17 1815 112 100 [...] 06/17 1455 83.0 06/17 1455 103 115/59 06/17 1441 82.0 06/17 1441 91 114/57 06/17 1426 83.0 06/17 1426 85 128/58 06/17 1411 87.0 06/17 1411 79 129/61 patient weight: weight (lb): 183weight (oz): 6.79weight (kg): 83.200 physical exambreasts: breasts: non-tender, softcardiac: normal sinus rhythmlungs: clear to auscultationneuro: exam: alert, oriented x3, normal speech, normal gaitabdomen: soft, no abnormal tenderness, no guarding, no rebound tenderness, normoactive bowel soundsincision site: noneuterus: firmfundus: firm, below the umbilicus, non-tenderlochia: normallacerations: perineal laceration(s): 1st degree w/labia/skin, 2nd degree w/vag musclesepisiotomy or laceration: well approximated edgesvulva/perineum: no hematomalower extremities: edema: trace resultfindings/data:laboratory tests: 06/18 0759 hematology hgb (10.1 - 13.8 g/dl) 9.8 l hct (32.5 - 41.8 %) 31.0 l serology rubella screen (iunit/ml) 91.7 diagnosis, assessment plan diagnosis, assessment planproblem list/a p: 1. pregestational diabetes mellitus, modified white class b 2. htn in , chronic free text a p:22 y/o s/p vavd, ppd # 1: 1. :-continue routine care, doing well 2. iai:-code sepsis initiated during labor, now confirmed gbs positive-continue iv gent and clinda x 24 hr pp then stop if remains afebrile-clinically stable at this time-cbc in am 3. type 2 dm:-continue metformin 500 mg bid-will re-evaluate , refer to pcp 4. hx labile bp:-no acute issues at this time, normotensive 4. dispo:-infant in nicu, anticipate prolonged stay-pt states desires d/c home tomorrow electronically signed by chuy gardner md on 06/18/22 at 2137 rpt #:[id number] of report PRProgress [id number]:06:00F.[id number] able for patient [id number]:38:15 [facility] 2022-06-17 18:19:00 [id number]/RIs5qbctg72408-84-79Y12:19:00 [facility])ob delivery notereport#:[id number] report status: signeddate:06/17/22 time: 1818 patient: vanesa swift unit #: [id number]#: [id number] [facility] 22 sex: f attend: chuy gardner mdadm dt: 06/17/22 author: chuy gardner md * all edits or amendments must be made on the electronic/computer document * ob delivery nursing documentation reviewnursing data:the data set between the solid lines has been imported from nursing documentation. any exceptions have been noted below under provider comments. rom date: 06/17/22 rom time: 0000membranes rupture method: sromamniotic fluid color: clearamniotic fluid amount: steroids prior to arrival: antibiotic prophylaxis given: post hemorrhage risk score: low risk for hemorrhage delivery date a: 06/17/22 delivery time a: 1746birthweight (gm) a: weight (lb) infant a: weight (oz) infant a: gender a: maleapgar 1 minute infant a: 5 minutes infant a: 10 minutes a: cord ph obtained a: vacuum time a: vacuum # pulls infant a: vacuum # popoffs a: qbl at delivery: provider comments on imported nursing data: [] pre-deliverygbs status: gbs status: unknown prophylaxis administered: cephazolin, pcn allergy, culture done 06/14/2022newborn evaluation at delivery: nrp certified personnel, section leader and machine setter, clinical data specialist, teamadmission ega: weeks: 37 days: 3ega at delivery (wks/days): 37 weeksadmission indication:srom, labor @ 37 3/7 weeks steroids prior to deliverysteroids prior to delivery: no, delivery on arrival blood loss/detailsblood loss at delivery: <1k: no sx hypovol=no hem, no more than expectedmanagement: uterotonic agent(s), fundal massage, suture/repairebl at delivery (ml's): 250 baby a informationbaby a information delivery date: 06/17/22 delivery time: 174 status: live born wt of baby (grams): 2770 gender: male 1 minute: 2 5 minutes: 4 10 minutes: 4 presentation: vertexnuchal cord baby a nuchal cord: noadditional comments:vavd of live, male , op.2 pulls with uc, no pop-offsinfant bulb suctioned, cord vclamped and cut, to waiting rn's.infant hr noted to be in 60's, nicu immediately notified requested at bedside eva. placenta delivered intactfundus firm, pitocin started nona to placenta deliveryno cervical lacerations 2nd degree bilateral vaginal lacerations repaired with 2-o chromic on ct-11st degree right labial laceration repaired with 2-0 chromic on shall sites hemostatic pt tolerated repair well vaginal delivery vaginal deliveryvaginal delivery: labor: spontaneous vaginal delivery: operative vag del vacuum amniotic fluid: clear anesthesia type: epidural anesthesia episiotomy: none episiotomy repair: not applicable laceration repair: yes, 2-0 suture placenta: spontaneous, intact post delivery meds used: oxytocin count: correct vaginal packing: no mother's condition: mother stable 's condition: infant to nicu, infant intubatedextraction details ovd performed: yes ovd type:kiwi vacuum indications: indications pt counseling: indications discussed, risks discussed, questions answered, patient consent obtained extraction assessment: cervix completely dilated, nursery anesth notified, mat-fet size appr for juan david, bladder empty station: outlet (5+) position of head: op episiotomy or incision: no incision # of pulls: 1 # of popoffs: 0 vacuum type: kiwi vacuum detail: always in recommend range, adv. in station w/ea pull, matern tiss excl from cupshoulder dystocia present: noadditional comments:nicu present, dr. lee's x-ray at bedside confimred tube placement after intubationnicu to speak with mother regarding progeress adn ongoing plan of care electronically signed by chuy gardner md on 06/17/22 at 1839 rpt #:[id number] of report CLClinical [id number]:19:00F.[id number] able for patient [id number]:39:51 [facility] 2022-06-17 16:04:00 [id number] 2V7Y2XyqextnhQF1II5l/y4bpt02301-16-41Q39:04:00 [facility] ([facility])ob intrapart prog notereport#:[id number] report status: signeddate:06/17/22 time: 1604 patient: vanesa swift unit #: [id number]#: [id number] room[facility]bed: [facility]-adob: 00 age: 22 sex: f attend: chuy gardner mdadm dt: 06/17/22 author: chuy gardner md * all edits or amendments must be made on the electronic/computer document * subjective subjectiveadmission ega (wks/days): 37 weekspatient reports: patient reports: no complaintscomments:ctsp due to temperature elevation and hr elevated, meeting sepsis protocol criteria. objective nursing documentation reviewnursing data:the data set between the solid lines has been imported from nursing documentation. any exceptions have been noted below under provider comments. rom date: 06/17/22 rom time: 0000 provider comments on imported nursing data: [] generalvs:last documented: result date time b/p mean 83.0 06/17 1455 b/p 115/59 06/17 1455 pulse 103 06/17 1455 temp 98.4 06/17 1233 resp 16 06/17 0121 vital signs date temp pulse resp b/p b/p mean pulse ox fio2 06/17 98.2-98.4 78-106 16 114-136/57-77 82.0-101.0 patient weight: weight (lb): 183weight (oz): 6.79weight (kg): 83.200 objectivecervical/ exam: dilatation (cm): 8 effacement (%): 100 station: 0 presentation: cephalicuterine activity: monitor: toco frequency (description): regular (every 2-5 minutes) duration (seconds): 60 resting tone: relaxed tachysystole: nocurrent oxytocin: indication: augmentation, not yet started, but ordered previouslyprocedures: vaginal exam fhr evaluationbaby a: baby a baseline: 160 bpm baby a variability: moderate 6-25 bpm baby a accelerations: 10 x 10 baby a decelerations: variable resultfindings/data:laboratory tests: 06/17 06/17 06/17 1250 0345 0125 [...] 1546 blood culture - ord blood 06/17 154 blood culture gram stain - ord blood diagnosis, assessment planproblem list/a p: 1. pregestational diabetes mellitus, modified white class b 2. htn in , chronic free text a p:22 y/o g1 @ 37 3/7 weeks, history of pgdm, also with suspected chtn, srom since 00:00 on 06/17/2022, remianed in [facility] for several hours awaiting l d bed, now with code sepsis called:-culture, iv fluids, labs-iv gent and clinda, pcn allergic-now 8//0-pitocin if able-moving towards vaginal delivery-anfs overall reassuring electronically signed by chuy gardner md on 06/17/22 at 1711 rpt #:[id number] of report PRProgress [id number]:04:00F.[id number] able for patient [id number]:12:15 [facility] 2022-06-17 02:08:00 [id number]:08:00 [facility]ob admission / h preport#:[id number] report status: signeddate:06/17/22 time: 0208 patient: vanesa swift unit #: [id number]#: [id number] [facility] age: 22 sex: f attend: chuy gardner mdadm dt: 06/17/22 author: antonio silva md * all edits or amendments must be made on the electronic/computer document * ob historychief complaint: leakage of fluidhpi:22 yo at 37w3d by stated dates presenting with leakage of clear fluid at midnight. she is feeling some period-like cramping. she reports recently being 4cm in the office. she received her care with dr. gardner. records are not currently available. she reports a growth ultrasound about 2 weeks ago, 6.14 lb. history: : 1 term: 0 : 0 abortus: 0 living children: 0current : admission ega (weeks) 37 admission ega (days) 3 edc based on: stated datesconditions of : diabetes - gestational (metformin 1,000 mg bid), gbs status (unknown)labs: gbs: pending per patient past historyadditional medical history:denies.additional surgical history:denies.additional family historydenies.alcohol use denies etoh usedrug use denies recreational drugssmoking status: smoking status for patients 13 years old or older: never smokermedications:home medications:pnv/fe fum/fa ( multivitamin) 1 tab po daily metformin 1,000 mg bid allergies:coded allergies:penicillins (hives 06/15/22) review of systemsall systems rev neg: except as marked objective generalvs:last documented: result date time b/p mean 94.0 06/17 0121 b/p 133/71 06/17 0121 temp 98.2 06/17 0121 pulse 90 06/17 0121 resp 16 06/17 0121 vital signs date temp pulse resp b/p b/p mean pulse ox fio2 06/17 98.2 90 16 133/71 94.0 patient weight: weight (lb): weight (oz): weight (kg): 83.482839 physical examheent: normocephalic w/o injurylungs: unlabored breathingneuro: exam: alert, oriented x3, normal speechabdomen: gravid, soft, no abnormal tenderness, no guarding, no rebound tendernessuterine activity: monitor: toco frequency (description): regular (every 2-5 minutes) duration (seconds): 60 resting tone: relaxed tachysystole: nopelvic exam: pelvis clinically adequate: yescervical/ exam: dilatation (cm): 4 effacement (%): 70 est wt (gms): 3700 suspected macrosomia: no suspected > 5000 grams: no station: - 2 presentation: cephalicmembranes: membranes: prom rom date: 06/17/22 rom time: 0000 amniotic fluid: clearlower extremities: edema: nonebaby a: baby a baseline: 135 bpm baby a variability: moderate 6-25 bpm baby a accelerations: 15 x 15 baby a decelerations: none baby a fhr category: category 1 diagnosis, assessment plan diagnosis, assessment planfree text a p: 22 yo at 37w3d presenting with prom. no cervical change since office exam. vitals wnl. fht cat i. maternal and status reassuring. gbs uknown. prom-admit to l d-admission labs-pitocin, titrate per protocol-continuous efm, toco-iv stadol 2 mg q 3 hours prn pain-epidural prn gdma2-fs q 4 hours gbs unknown-patient reports collected this past wednesday in the office-no indication to start antibiotics at this time-if prolonged rom, recommend starting antibiotics; patient has penicillin allergy of hives so would start vancomycin at that time electronically signed by antonio silva md on 06/17/22 at 0254 rpt #:[id number] of report HPHistory and physical [id number]:08:[id number] AVAvailable for patient [id number]:54:44 [facility]
[2024-02-22] MEDS ORDERED: LIDOCAINE 1% MPF 2 ML AMPULE ONE (21:08)
[2024-02-22] MEDS ORDERED: ACETAMINOPHEN 500 MG TAB ONE (21:08)
[2024-02-22] MEDS ORDERED: CEFTRIAXONE 1000 MG/VIAL ONE (21:08)
[2024-02-22] MEDS ORDERED: IBUPROFEN 400 MG TAB ONE (21:08)
--- NOTE | 2024-02-22 21:11 | ER ---
Nurse's Notes [facility] Name: Bing Martin Age: 24 yrs Sex: Female : 2000 Arrival Date: 02/22/2024 Time: 20:31 Bed IW3 Private MD: Diagnosis: Streptococcal tonsillitis;Acute suppurative otitis media without spontaneous rupture of ear drum, left ear Presentation: 02/21 20:53 Chief complaint: Patient states: fever 4 days, sore throat, left ear pain. Coronavirus as6 screen: Client denies travel out of the [place] in the last 14 days. sore throat, Client presents with at least one sign or symptom that may indicate coronavirus-19. Ebola Screen: Patient negative for fever greater than or equal to 101.5 degrees Fahrenheit, and additional compatible Ebola Virus Disease symptoms Patient denies exposure to infectious person. Patient denies travel to an Ebola-affected area in the 21 days before illness onset. No symptoms or risks identified at this time. Initial Sepsis Screen: Does the patient meet any 2 criteria? No. Patient's initial sepsis screen is negative. Does the patient have a suspected source of infection? No. Patient's initial sepsis screen is negative. Risk Assessment: Do you want to hurt yourself or someone else? Patient reports no desire to harm self or others. Onset of symptoms was February 18, 2024. 20:53 Method Of Arrival: Ambulatory as6 20:53 Acuity: TORREY 4 as6 Triage Assessment: 20:55 General: Appears in no apparent distress. uncomfortable, Behavior is calm, cooperative, as6 appropriate for age. Pain: Complains of pain in throat Pain radiates to left ear Pain currently is 10 out of 10 on a pain scale. Aggravated by eating, drinking, Noted to be grimacing. EENT: Reports pain when swallowing. Neuro: Level of Consciousness is awake, alert, obeys commands, Oriented to person, place, time, situation, Appropriate for age. Cardiovascular: No deficits noted. Respiratory: Airway is patent Respiratory effort is even, unlabored, Respiratory pattern is regular, symmetrical. 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 - Infectious Disease History:: Denies. - Social history:: Smoking status: Patient denies any tobacco usage or history of. - Family history:: not pertinent. Screenin:18 [facility] ED Fall Risk Assessment (Adult) History of falling in the last 3 months, as6 including since admission No falls in past 3 months (0 pts) Confusion or Disorientation No (0 pts) Intoxicated or Sedated No (0 pts) Impaired Gait No (0 pts) Mobility Assist Device Used No (0 pt) Altered Elimination No (0 pt) Score/Fall Risk Level 0 - 2 = Low Risk Oriented to surroundings, Maintained a safe environment, Educated pt \T\ family on fall prevention, incl call for assistance when getting out of bed, Assessed \T\ reinforced patient's understanding of fall precautions. Abuse screen: Denies threats or abuse. Denies injuries from another. Nutritional screening: No deficits noted. Tuberculosis screening: No symptoms or risk factors identified. Vital Signs: 20:53 BP 143 / 96; Pulse 100; Resp 18; Temp 97.5; Pulse Ox 99% ; Weight 72.57 kg; Height 5 as6 ft. 6 in. ; Pain 10/10; 20:53 Body Mass Index 25.82 (72.57 kg, 167.64 cm) as6 20:53 Pain Scale: Adult as6 Rebeca Coma Score: 21:14 Eye Response: spontaneous(4). Motor Response: obeys commands(6). Verbal Response: sp4 oriented(5). Total: 15. ED Course: 20:39 Patient arrived in ED. jj6 20:39 Kirit Dickson PA is PHCP. cp 20:39 Flex Meza MD is Attending Physician. cp 20:55 Triage completed. as6 20:55 Arm band placed on right wrist. as6 21:03 SARS RAPID Sent. vc1 21:03 Flu Sent. vc1 21:03 Strep Sent. vc1 21:18 Call light in reach. Provided Education on: rx teaching. as6 21:18 No provider procedures requiring assistance completed. Patient did not have IV access as6 during this emergency room visit. Administered Medications: 21:15 Drug: Rocephin (cefTRIAXone) IM 1 grams IM once Route: IM; Site: right ventrogluteal; as6 21:19 Follow up: Response: No adverse reaction as6 21:15 Drug: Acetaminophen PO 1000 mg PO once Route: PO; as6 21:19 Follow up: Response: No adverse reaction as6 21:15 Drug: Ibuprofen PO 800 mg PO once Route: PO; as6 21:19 Follow up: Response: No adverse reaction as6 Medication: 21:18 VIS not applicable for this client. as6 Outcome: 21:10 Discharge ordered by . sp4 21:18 Discharged to home ambulatory, as6 21:18 Condition: stable 21:18 Discharge instructions given to patient, Instructed on discharge instructions, follow up and referral plans. medication usage, Demonstrated understanding of instructions, follow-up care, medications, Prescriptions given X 2, 21:20 Patient left the ED. as6 Signatures: Kirit Dickson PA PA cp Jeffries, Jennifer jj6 Ravinder Lagunas RN RN as6 Olya Landon RN RN vc1 Flex Meza MD MD sp4
--- NOTE | 2024-02-22 21:11 | EDPHYS ---
Physician Documentation [facility] Name: Bing Martin Age: 24 yrs Sex: Female : 2000 Arrival Date: 02/22/2024 Time: 20:31 Bed IW3 Private MD: ED Physician Flex Meza HPI: 02/21 21:07 This 24 yrs old Black Female presents to ER via Ambulatory with complaints of Sore sp4 Throat, Ear Pain, Congestion, Fever. 21:14 24-year-old female presents with complaint of sore throat with left ear pain fever and sp4 congestion. . 21:14 Patient reported symptoms started 4 days ago. 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 - Infectious Disease History:: Denies. - Social history:: Smoking status: Patient denies any tobacco usage or history of. - Family history:: not pertinent. ROS: 21:14 Constitutional: Positive subjective fever, cough congestion, left ear pain sore sp4 throat 21:14 All other systems are negative, Exam: 21:14 Constitutional: This is a well developed, well nourished patient who is awake, alert, sp4 and in no acute distress. Head/Face: Normocephalic, atraumatic. Eyes: Pupils equal round and reactive to light, extra-ocular motions intact. Lids and lashes normal. Conjunctiva and sclera are not injected. Cornea within normal limits. Periorbital areas with no swelling, redness, or edema. ENT: Nares patent. No nasal discharge, no septal abnormalities noted. Tympanic membranes are normal and external auditory canals are clear. Oropharynx with no redness, swelling, or masses, exudates, or evidence of obstruction, uvula midline. Mucous membranes moist. Neck: Trachea midline, no thyromegaly or masses palpated, and no cervical lymphadenopathy. Supple, full range of motion without nuchal rigidity, or vertebral point tenderness. Chest/axilla: Normal chest wall appearance and motion. Nontender with no deformity. No lesions are appreciated. Cardiovascular: Regular rate and rhythm with a normal S1 and S2. No gallops, murmurs, or rubs. Normal PMI, no JVD. No pulse deficits. Respiratory: Lungs have equal breath sounds bilaterally, clear to auscultation and percussion. No rales, rhonchi or wheezes noted. No increased work of breathing, no retractions or nasal flaring. Abdomen/GI: Soft, with normal bowel sounds. No distension or tympany. No guarding or rebound. No evidence of tenderness throughout. Back: No spinal tenderness. No costovertebral tenderness. Skin: Warm, dry with normal turgor. Normal color with no rashes, no lesions, and no evidence of cellulitis. MS/ Extremity: Pulses equal, no cyanosis. Neurovascular intact. Full, normal range of motion. Neuro: Awake and alert, GCS 15, oriented to person, place, time, and situation. Cranial nerves II-XII grossly intact. Motor strength 5/5 in all extremities. Sensory grossly intact. Psych: Awake, alert, with orientation to person, place and time. Behavior, mood, and affect are within normal limits Vital Signs: 20:53 BP 143 / 96; Pulse 100; Resp 18; Temp 97.5; Pulse Ox 99% ; Weight 72.57 kg; Height 5 as6 ft. 6 in. ; Pain 10/10; 20:53 Body Mass Index 25.82 (72.57 kg, 167.64 cm) as6 20:53 Pain Scale: Adult as6 Rebeca Coma Score: 21:14 Eye Response: spontaneous(4). Motor Response: obeys commands(6). Verbal Response: sp4 oriented(5). Total: 15. MDM: 21:00 Patient medically screened. sp4 21:14 Differential diagnosis: apthous ulcer, laryngitis, pharyngitis. Data reviewed: vital sp4 signs, nurses notes. ED course: Patient has clear signs of bacterial otitis media on the left and also bilateral tonsillitis. Will treat with Rocephin and cephalexin. 02/21 21: Order name: Strep as6 02/21 21: Order name: Flu as6 02/21 21: Order name: SARS RAPID as6 Administered Medications: 21:15 Drug: Rocephin (cefTRIAXone) IM 1 grams IM once Route: IM; Site: right ventrogluteal; as6 21:19 Follow up: Response: No adverse reaction as6 21:15 Drug: Acetaminophen PO 1000 mg PO once Route: PO; as6 21:19 Follow up: Response: No adverse reaction as6 21:15 Drug: Ibuprofen PO 800 mg PO once Route: PO; as6 21:19 Follow up: Response: No adverse reaction as6 Disposition Summary: 02/22/24 21:10 Discharge Ordered Notes: Location: Home sp4 Problem: new sp4 Symptoms: have improved sp4 Condition: Stable sp4 Diagnosis - Streptococcal tonsillitis sp4 - Acute suppurative otitis media without spontaneous rupture of ear drum, left ear sp4 Followup: sp4 - With: Private Physician - When: 7 - 10 days - Reason: Recheck today's complaints Discharge Instructions: - Discharge Summary Sheet sp4 - Tonsillitis, Szia-ti-Cfea sp4 Forms: - Work release form pf1 - Patient Portal Instructions sp4 Prescriptions: - Cephalexin 500 mg Oral Capsule - take 1 capsule ORAL route every 12 hours for 10 days; 20 capsule; Refills: 0, sp4 Product Selection Permitted - Ibuprofen 800 mg Oral Tablet - take 1 tablet ORAL route every 8 hours As needed take with food; 30 tablet; sp4 Refills: 0, Product Selection Permitted Signatures: Dispatcher [employer] Ravinder Pineda RN RN as6 Flex Meza MD MD sp4 Corrections: (The following items were deleted from the chart) 21:01 21:01 Group A Streptococcus Rapid Sc+BA.LAB.BRZ ordered. EDMS EDMS 21:01 21:01 Influenza Screen (A \T\ B)+BA.LAB.BRZ ordered. EDMS EDMS 21:01 21:01 SARS-COV-2 Antigen Rapid+I.LAB.BRZ ordered. EDMS EDMS
[2024-02-22 21:34] LABS: SARS-CoV-2 Antigen CONTROL BLUE LINE VIS/BG OK; SARS-CoV-2 Antigen Rapid Res Negative (Negative)
[2024-02-22 21:44] VITALS: BP 143/96; TEMP 97.5; O2SAT 99
== END 2024-02-22 21:20 | disposition home or self-care (01) ==
LOC: ER 20:31
DX: J03.00 Acute streptococcal tonsillitis, unspecified (principal); H66.002 Acute suppurative otitis media without spontaneous rupture of ear drum, left ear; Z11.52 Encounter for screening for COVID-19; Z88.0 Allergy status to penicillin
CPT/HCPCS: 87070; 36415; 87081; 87804 ×2; 96372; 99284; 87811; J0696

== ENCOUNTER 2024-03-05 11:01 | Emergency (ER) | payer BC ==
--- OUTSIDE RECORDS SUMMARY | 2024-03-05 11:03 | XMS REPORT | Continuity of Care Document ---
Author Name Unknown Address [address] [facility] [address] [place] [address] [facility] thconnect Address [address] [facility] [address] [place] [address] Care Team Providers Care General Assistant Name Role Phone Chuy Gardner Attending Clinician Unavailab Chuy Macias Admitting Clinician Unavailab chris [facility] Payer Name Policy Type Policy Number Effective Date Expirati on Date Source Allergies, Adverse Reactions, Alerts Allergy Name Allergy Type Status Severity Reaction(s) Onset Date Inactive Date Treating Clinician Comments Source Penicill ins DA Active U HIVES 06-17 00:00: 00 [facility] Penicill ins DA Active U HIVES 06-15 00:00: 00 [facility] Penicill ins DA Active U ANAPHYLAXIS 11-18 00:00: 00 [facility] Procedures Procedure Date / Time Performed Performing Clinicia n Source [id number] 2022-06-17 00:00:00 [facility]01 [facility] [id number] 2022-06-17 00:00:00 MIDJA[facility]01 [facility] [id number] 2022-06-17 00:00:00 MIDJA.01 [facility] Encounters Start Date/Time End Date/Time Encounter Type Admission Type Attending Clinicians Care Facility Care Department Encounter ID Source 2022-06-17 01:39:00 2022-06-19 14:00:00 Inpatient EL Chuy Gardner [facility] [id number] [facility] 2022-06-15 21:43:00 2022-06-15 22:47:00 Emergency EM Chuy Gardner [facility] [id number] [facility] Results Test Description Test Time Test Comments Results Result Co mments Source [id number] 09:30:00* Test Item Value Reference Range Interpretation Comme nts GLUBED (test code = GLUBED) 81 mg/dL 65-110 N RUBELLA [id number] 08:50:00* Test Item Value Reference Range Interpretation Comme [facility] RUBELLA SCREEN (test code = RUBSC) 91.7 IUnit/ml Results >10.0IUn its/ml are considered positive inaccordance with the CLSI guidelines and based on the WHO International Standard for Anti-Rubella serum as anindicator of immune status and a breakpoint to detect mostseropositive persons. HGB [id number] 08:10:00* Test Item Value Reference Range Interpretation Comme nts HEMOGLOBIN (test code = HGB) 9.8 g/dL 10.1-13.8 L HEMATOCRIT (test code = HCT) 31.0 % 32.5-41.8 L LACTIC [id number] 21:11:00* Test Item Value Reference Range Interpretation Comme nts LACTIC ACID (test code = LACT) 1.3 MMOL/L 0.5-2.2 N LACTIC [id number] 19:21:00* Test Item Value Reference Range Interpretation Comme nts LACTIC ACID (test code = LACT) 3.0 MMOL/L 0.5-2.2 H RESULTS CALLED Kemar MURCIA RN.READ BACK & CONFIRMED? Y.BY [id number] 06/17/221920.Results verified by repeat analysis CAPILLARY BLOOD [id number] 18:02:00* Test Item Value Reference Range Interpretation [...] code = FIO2C) 21.0 % CAPILLARY BLOOD [id number] 18:01:00* Test Item Value Reference Range Interpretation [...] st code = FIO2C) 21.0 % LACTIC [id number] 17:30:00* Test Item Value Reference Range Interpretation Comme nts LACTIC ACID (test code = LACT) 2.2 MMOL/L 0.5-2.2 N RESULTS CALLED T Kimberly LINDSEY RN.READ BACK & CONFIRMED? Y.BY [id number] 06/17/22 172.Results verified by repeat analysis COMPREHENSIVE METABOLIC [id number] 17:17:00* Test Item Value Reference Range Interpretation [...] = ALKP) 137 units/L 46-116 H PROTHROMBIN [id number] 16:38:00* Test Item Value Reference Range Interpretation Comme [facility] PROTHROMBIN TIME PATIENT (te st code = PTP) 11.1 secs 10.1-12.3 N IS PATIENT ON ANTICOAGULANTS ? NINTERNATIONAL NORMAL [id number] 16:38:00* Test Item Value Reference Range Interpretation Comme [facility] INTERNATIONAL NORMAL RATIO (test code = INR) 0.97 The INR is to be used only for monitoring oral anticoagulanttherapy. INDICATION INR VALUE 1. Prophylaxis including high risk surgery 2.0 - 2.52. Deep venous thrombosis. Pulmonary embolism. Atrial fibrillation or bioprosthetic heart valves 2.0 - 3.03. Mechanical heart valves or recurrent systemic embolism. 3.0 - 3.5 IS PATIENT ON ANTICOAGULANTS ? NTHROMBOPLASTIN TIME [id number] 16:38:00* Test Item Value Reference Range Interpretation Comme [facility] THROMBOPLASTIN TIME PARTIAL (test code = PTT) 29.0 secs 22-38 N IS PATIENT ON ANTICOAGULANTS ? NCBC W/AUTO [id number] 16:12:00* Test Item Value Reference Range Interpretation [...] REQUIRED (test code = PLTMR) NORMAL NORMAL [id number] 12:56:00* Test Item Value Reference Range Interpretation Comme nts GLUBED (test code = GLUBED) 129 mg/dL 65-110 H AG HEPATITIS B [id number] 05:35:00* Test Item Value Reference Range Interpretation Comme nts AG HEPATITIS B SURFACE (test code = HBSAG) NONREACTIVE NONREACTIVE AB HEPATITIS C [id number] 05:35:00* Test Item Value Reference Range Interpretation Comme nts AB HEPATITIS C (test code = HCVAB) NONREACTIVE NONREACTIVE SIGNAL TO CUTOFF (test code = CUTOFF) 0.17 <0.80 N AB [id number] 05:35:00* Test Item Value Reference Range Interpretation Comme nts AB TREPONEMA (test code = TREPAB) NONREACTIVE NONREACTIVE AB HIV 1 05:35:00* Test Item Value Reference Range Interpretation Comme nts AB HIV 1 2 (test code = TJH36EG) NONREACTIVE NONREACTIVE Done by [employer] 4[employer] Gen HIV Ag/Ab Combo Screen [id number] 05:27:00* Test Item Value Reference Range Interpretation Comme nts GLUCOSE (test code = GLU) 109 mg/dL 65-110 N CBC W/AUTO [id number] 04:00:00* Test Item Value Reference Range Interpretation [...] PLTMR) NORMAL NORMAL COVID 19 Asymptomatic IH [id number] 03:04:00* Test Item Value Reference Range Interpretation [...] testsfor detection and/or diagnosis of COVID-19 under Yjvrmmi380(b)(1) of the Act, 21 U.S.C. 360bbb-3(b)(1), unless theauthorization is terminated or revoked sooner. Notes Date/Time Note Provider Source 2022-06-19 08:42:00 [id number]2NN +ZuPVuv+TLBqSsyG45TgkO6PTJs2934-07-03Y26:42:00 [facility]ob disch postpartumreport#:[id number] report status: signeddate:06/19/22 time: 841 patient: vanesa swift unit #: [id number]#: [id number] room/bed: f.2021-adob: 00 age: 22 sex: f attend: chuy gardner [facility] dt: 06/17/22 author: chuy gardner md * [...] tests: 06/18 06/17 06/17 06/17 06/17 0759 202 1815 1757 1756 blood gas capillary ph [...] date/time procedure - status source growth 06/17 155 blood culture - res blood 06/17 155 blood culture gram stain - res blood 06/17 1556 blood culture - res blood 06/17 155 blood culture gram stain - res blood [...] of admission:date of admission: 06/17/22 admission diagnosis: vupfslpt-vva-vludqpux, labor-spontaneoushospital course: spontaneous labor, augmentation of labor, [...] physician: attending physician: chuy gardner md phone: [phone] attending physician follow up timeframe: in 3-4 weeks special instructions:pelvic rest electronically signed by chuy gardner md on 06/19/22 at 1328 rpt #:[id number] of report CLClinical [id number]:42:00F.[id number] able for patient ryjvQFWFMOHOKVUPIV7696-04-99S84:28:30 [facility] 2022-06-18 14:06:00 [id number] HZUyA7OIP30r+XgUqzgD2W/2UeZxy N5kKNpHC55pDG4KxHlsDb6wWQZ40657-37-42J21:06:00 [facility] ([facility]ob postpart progr notereport#:[id number] report status: signeddate:06/18/22 time: 1406 patient: vanesa swift unit #: [id number]#: [id number] room/bed: 2021-adob: 00 age: 22 sex: f [...] ambulating well, back and forth to nicu. improving, optimistic about progress. no f/c. objective [...] 105 128/55 100 06/17 1835 111 100 06/17 1830 111 100 06/17 1827 16 06/17 1827 88.0 06/17 1827 107 130/62 06/17 1825 109 100 06/17 1820 114 100 [...] gardner md on 06/18/22 at 2137 rpt #:[id number] of report PRProgress [id number]:06:00F.[id number] able for patient oytpRKPUGTCDBDKFBL8297-61-25F85:38:15 [facility] 2022-06-17 18:19:00 [id number] [id number] 3f9ki0Ese0THAG24/VFd0hpwyv47964-67-13O81:19:00 [facility]ob delivery notereport#:[id number] report status: signeddate:06/17/22 time: 181 patient: vanesa swift unit #: [id number]#: [id number] [address] age: 22 sex: f attend: chuy [...] a: 5 minutes infant a: 10 minutes infant a: cord ph obtained a: vacuum time infant a: vacuum # pulls a: vacuum # popoffs infant a: qbl at delivery: provider comments on imported nursing data: [] pre-deliverygbs status: gbs status: unknown prophylaxis administered: cephazolin, pcn allergy, culture done 06/14/2022newborn evaluation at delivery: nrp certified personnel, 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, biological engineer, teamadmission ega: weeks: 37 days: 3ega at [...] vaginal packing: no mother's condition: mother stable infant's condition: infant to nicu, infant intubatedextraction details [...] after intubationnicu to speak with mother regarding infant progeress adn ongoing plan of care electronically signed by chuy gardner md on 06/17/22 at 1839 rpt #:[id number] of report CLClinical vojh2689-67-35U21:19:00F.[id number] able for patient jmlmXPLVBBPISFTCBG7707-82-18S51:39:51 [facility] 2022-06-17 16:04:00 [id number]Q 6J9Y9MdcfoszxSG9HT9p/y1kkx93670-12-47N10:04:00 [facility] ([facility])ob intrapart prog notereport#:[id number] report status: signeddate:06/17/22 time: 1604 patient: vanesa swift unit #: [id number]#: [id number] [facility]: 22 sex: f attend: [...] date/time procedure - status source growth 06/17 154 blood culture - ord blood 06/17 154 blood culture gram stain - ord blood 06/17 154 blood culture - ord blood 06/17 154 [...] fluids, labs-iv gent and clinda, pcn allergic-now 8/c/0-pitocin if able-moving towards vaginal delivery-anfs overall reassuring electronically signed by chuy gardner md on 06/17/22 at 1711 rpt #:[id number] of report PRProgress cnry0194-93-08Y17:04:00F.[id number] able for patient ojayQUKNDGPXXOIAXE5882-21-50N05:12:15 [facility] 2022-06-17 02:08:00 [id number] /[id number] [id number]-87I26:08:00 [facility]ob admission / h preport#:[id number] report status: signeddate:06/17/22 time: 0208 patient: vanesa swift unit #: [id number]#: [id number] [facility] age: 22 sex: f attend: chuy [...] weight: weight (lb): weight (oz): weight (kg): 83.370020 physical examheent: normocephalic w/o injurylungs: unlabored breathingneuro: [...] silva md on 06/17/22 at 0254 rpt #:[id number] of report HPHistory and physical nzmlbgkgdgv2822-44-77B34:08:00F.[id number] AVAvailable for patient qvmeETVIJZIAOGXXZC9335-97-28S93:54:44 [facility]CA[facility]
[2024-03-05 11:51] LABS: SARS-CoV-2 Antigen CONTROL BLUE LINE VIS/BG OK; SARS-CoV-2 Antigen Rapid Res Negative (Negative)
--- NOTE | 2024-03-05 12:26 | EDPHYS ---
Physician Documentation [facility] Name: Bing Martin Age: 24 yrs Sex: Female : 2000 Arrival Date: 03/05/2024 Time: 11:01 Bed 20 Private MD: ED Physician Dirk Hopson HPI: 03/05 11:25 This 24 yrs old Black Female presents to ER via Ambulatory with complaints of Fever. cp 11:25 The patient reports fever, not measured (subjective). cp 11:25 Associated signs and symptoms: Pertinent positives: cough, earache, sore throat, cp Pertinent negatives: diarrhea, vomiting. Severity of symptoms: in the emergency department the symptoms are unchanged despite home interventions. 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 - Infectious Disease History:: Denies. - Social history:: Smoking status: Patient denies any tobacco usage or history of. Patient uses. ROS: 11:30 Constitutional: Negative for fever, poor PO intake, cp 11:30 Eyes: Negative for injury, pain, redness, and discharge, cp 11:30 ENT: Positive for ear pain, sore throat, Negative for drainage from ear(s), difficulty swallowing, difficulty handling secretions, 11:30 Respiratory: Positive for cough, Negative for shortness of breath, wheezing, 11:30 Abdomen/GI: Negative for abdominal pain, vomiting, diarrhea, constipation, 11:30 Skin: Negative for rash, 11:30 Neuro: Negative for headache, 11:30 All other systems are negative, Exam: 11:33 Constitutional: The patient appears in no acute distress, alert, awake, non-toxic, well cp developed, well nourished, 11:33 Head/Face: Normocephalic, atraumatic. cp 11:33 Eyes: Periorbital structures: appear normal, Conjunctiva: normal, no exudate, no injection, Sclera: no appreciated abnormality, Lids and lashes: appear normal, bilaterally, 11:33 ENT: External ear(s): are unremarkable, Ear canal(s): are normal, clear, TM's: dullness, bilaterally, Nose: is normal, Mouth: Lips: moist, Oral mucosa: moist, Posterior pharynx: Airway: no evidence of obstruction, patent, Tonsils: with erythema, erythema, that is mild, exudate, is not appreciated, 11:33 Neck: ROM/movement: Meningeal signs: are not present, nuchal rigidity, is not appreciated, 11:33 Chest/axilla: Inspection: normal, 11:33 Cardiovascular: Rate: normal, Rhythm: regular, 11:33 Respiratory: the patient does not display signs of respiratory distress, Respirations: normal, no use of accessory muscles, no retractions, labored breathing, is not present, Breath sounds: stridor, is not appreciated, + upper airway congestion. wheezing: is not appreciated, 11:33 Abdomen/GI: Exam negative for discomfort, distension, guarding, Inspection: abdomen appears normal, 11:33 Skin: no rash present. Vital Signs: 11:15 BP 143 / 63; Pulse 88; Resp 16; Temp 98.4(O); Pulse Ox 98% ; Weight 72.57 kg; Height 5 iw ft. 6 in. ; Pain 10/10; 12:32 BP 139 / 67; Pulse 78; Resp 18; Pulse Ox 100% on R/A; mb9 11:15 Body Mass Index 25.82 (72.57 kg, 167.64 cm) iw 11:15 Pain Scale: Adult iw MDM: 11:19 Patient medically screened. cp 11:30 Differential diagnosis: viral Infection, bacterial infection, URI, strep throat, cp influenza, COVID-19. 12:25 Data reviewed: vital signs, nurses notes, lab test result(s), and as a result, I will cp discharge patient. 12:25 Counseling: I had a detailed discussion with the patient and/or guardian regarding the cp historical points, exam findings, and any diagnostic results supporting the discharge/admit diagnosis, lab results, to return to the emergency department if symptoms worsen or persist or if there are any questions or concerns that arise at home. 03/05 11:20 Order name: Influenza Screen (a \T\ B) 03/05 11:20 Order name: SARS RAPID cp 03/05 11:20 Order name: Strep cp 03/05 12:25 Order name: Throat Culture EDMS Administered Medications: No medications were administered Disposition Summary: 03/05/24 12:25 Discharge Ordered Notes: Location: Home cp Problem: new cp Symptoms: are unchanged cp Condition: Stable cp Diagnosis - Otitis media, unspecified, left ear cp - Cough cp - Acute pharyngitis, unspecified cp Followup: cp - With: Private Physician - When: 2 - 3 days - Reason: Worsening of condition Discharge Instructions: - Discharge Summary Sheet cp - Otitis Media, Adult cp - Pharyngitis cp - Sore Throat cp - Cough, Adult cp Forms: - Medication Reconciliation Form cp - Antibiotic Education cp - Prescription Opioid Use cp - Patient Portal Instructions cp - Leadership Thank You Letter cp - Work release form mb9 Prescriptions: - Bromfed DM 2-30-10 mg/5 mL Oral syrup - administer 10 milliliter ORAL route every 6 hours as needed for cold symptoms; cp 240 milliliter; Refills: 0, Product Selection Permitted - clarithromycin 500 mg Oral tablet - take 1 tablet ORAL route every 12 hours for 10 days; 20 tablet; Refills: 0, cp Product Selection Permitted - Medrol (Peter) 4 mg Oral Tablets, Dose Pack - take 1 tablet ORAL route as directed - follow package instructions; 1 packet; cp Refills: 0, Product Selection Permitted Signatures: Dispatcher [employer] Lupe Stewart RN RN Kirit De Souza PA PA cp
--- NOTE | 2024-03-05 12:26 | ER ---
Nurse's Notes [facility] Name: Bing Martin Age: 24 yrs Sex: Female : 2000 Arrival Date: 03/05/2024 Time: 11:01 Bed 20 Private MD: Diagnosis: Otitis media, unspecified, left ear;Cough;Acute pharyngitis, unspecified Presentation: 03/05 11:15 Chief complaint: Patient states: my throat is still hurting, has a cough and runny iw nose, was seen here two weeks ago and had strep. Coronavirus screen: Client presents with at least one sign or symptom that may indicate coronavirus-19. Ebola Screen: Patient negative for fever greater than or equal to 101.5 degrees Fahrenheit, and additional compatible Ebola Virus Disease symptoms Patient denies exposure to infectious person. Patient denies travel to an Ebola-affected area in the 21 days before illness onset. No symptoms or risks identified at this time. Initial Sepsis Screen: Does the patient meet any 2 criteria? No. Patient's initial sepsis screen is negative. Does the patient have a suspected source of infection? No. Patient's initial sepsis screen is negative. Risk Assessment: Do you want to hurt yourself or someone else? Patient reports no desire to harm self or others. 11:15 Method Of Arrival: Ambulatory iw 11:15 Acuity: TORREY 4 iw 11:25 Onset of symptoms was March 05, 2024. 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 - Infectious Disease History:: Denies. - Social history:: Smoking status: Patient denies any tobacco usage or history of. Patient uses. Screenin:19 [facility] ED Fall Risk Assessment (Adult) History of falling in the last 3 months, mb9 including since admission No falls in past 3 months (0 pts) Confusion or Disorientation No (0 pts) Intoxicated or Sedated No (0 pts) Impaired Gait No (0 pts) Mobility Assist Device Used No (0 pt) Altered Elimination No (0 pt) Score/Fall Risk Level 0 - 2 = Low Risk Oriented to surroundings, Maintained a safe environment, Educated pt \T\ family on fall prevention, incl call for assistance when getting out of bed. Abuse screen: Denies threats or abuse. Nutritional screening: No deficits noted. Tuberculosis screening: No symptoms or risk factors identified. Assessment: 11:24 General: Appears in no apparent distress. Behavior is calm, cooperative. Pain: mb9 Complains of pain in throat Pain does not radiate. Pain currently is 8 out of 10 on a pain scale. Quality of pain is described as throbbing. Neuro: Ibarra Agitation-Sedation Scale (RASS): 0 - Alert and Calm Level of Consciousness is awake, alert, obeys commands, Oriented to person, place, time, situation, Appropriate for age. Cardiovascular: Heart tones S1 S2 present Patient's skin is warm and dry. Respiratory: Reports cough that is Airway is patent Respiratory effort is even, unlabored, Respiratory pattern is regular, symmetrical, Breath sounds are clear bilaterally. GI: No signs and/or symptoms were reported involving the gastrointestinal system. : No signs and/or symptoms were reported regarding the genitourinary system. EENT: Oral mucosa is moist. Throat is clear Reports sore throat. Derm: Skin is pink, warm \T\ dry. Musculoskeletal: Range of motion: intact in all extremities. 12:23 Reassessment: Patient appears in no apparent distress at this time. No changes from mb9 previously documented assessment. Patient and/or family updated on plan of care and expected duration. Pain level reassessed. Patient is alert, oriented x 3, equal unlabored respirations, skin warm/dry/pink. Vital Signs: 11:15 BP 143 / 63; Pulse 88; Resp 16; Temp 98.4(O); Pulse Ox 98% ; Weight 72.57 kg; Height 5 iw ft. 6 in. ; Pain 10/10; 12:32 BP 139 / 67; Pulse 78; Resp 18; Pulse Ox 100% on R/A; mb9 11:15 Body Mass Index 25.82 (72.57 kg, 167.64 cm) iw 11:15 Pain Scale: Adult iw ED Course: 11:06 Patient arrived in ED. mg5 11:07 Kirit Dickson PA is PHCP. cp 11:07 Dirk Hopson MD is Attending Physician. cp 11:16 Triage completed. iw 11:18 Arm band placed on. iw 11:19 Herminia Preciado, RN is Primary Nurse. mb9 11:19 Placed in gown. Bed in low position. Call light in reach. Side rails up X 1. Provided mb9 Education on: press call light if needing anything. Client placed on continuous cardiac and pulse oximetry monitoring. NIBP monitoring applied. Door closed. Noise minimized. Warm blanket given. 11:24 Strep Sent. mb9 11:24 SARS RAPID Sent. mb9 11:24 Influenza Screen (a \T\ B) Sent. mb9 11:25 No provider procedures requiring assistance completed. mb9 11:26 COVID swab sent to lab. Flu and/or RSV swab sent to lab. Strep swab sent to lab. mb9 12:32 Patient did not have IV access during this emergency room visit. mb9 Administered Medications: No medications were administered Medication: 11:19 VIS not applicable for this client. mb9 Outcome: 12:25 Discharge ordered by MD. cp 12:32 Discharged to home ambulatory, with family, mb9 12:32 Condition: stable 12:32 Discharge instructions given to patient, Instructed on discharge instructions, follow up and referral plans. Demonstrated understanding of instructions, follow-up care, medications, Prescriptions given X 3, 12:32 Patient left the ED. mb9 Signatures: Lupe Ivy, RN RN Kirit Dickson PA PA cp Breneman, Mary Beth, RN RN mb9 Sammie Burnett mg5 Corrections: (The following items were deleted from the chart) 11:17 11:15 BP 143 / 63; Pulse 88bpm; Resp 16bpm; Pulse Ox 98%; 72.57 kg; Height 5 ft. 6 in.; BMI: 25.8; iw
[2024-03-05 12:51] VITALS: BP 139/67; TEMP 98.4; O2SAT 100
== END 2024-03-05 12:32 | disposition home or self-care (01) ==
LOC: ER 11:01
DX: H66.92 Otitis media, unspecified, left ear (principal); R05.9 Cough, unspecified; J02.9 Acute pharyngitis, unspecified; Z11.52 Encounter for screening for COVID-19; Z88.0 Allergy status to penicillin
CPT/HCPCS: 36415; 87070; 87081; 87804; 87811; 99283